=== PATIENT | male | born 1955 | race Caucasian/White ===

== ENCOUNTER 2021-11-21 16:03 | Inpatient (IN) | payer OTHER ==
[~2021-11-21] VITALS: Ht 190.5 cm; Wt 62.3 kg
[~2021-11-21 16:03] MED LIST: ALBU2.5V5 INH; ALBU90OI INH; AMIT25 PO; BACL20 PO; CYAN1000 PO; Cialis5 MG PO; DOCU100 PO; LEVO750 PO; MAGOX 400400 MG PO; METO50ER PO; OMEP20ER PO; OXYC5 PO; SPIRIVA RESPIMAT4 G3 INH; SYMBICORT 160-4.6 GM; Vitamin B-121000 MCG PO
[2021-11-21 16:29] LABS: BASOPHILS ABSOLUTE AUTO 0.06 K/mm3 (0.00-0.23); BASOPHILS PERCENT AUTO 0 % (0-2); EOSINOPHILS ABSOLUTE AUTO 0.01 K/mm3 (0.00-0.68); EOSINOPHILS PERCENT AUTO 0 % (0-6); Hematocrit 49.2 % (37.0-53.0); Hemoglobin 15.7 g/dL (13.5-17.5); IMMATURE GRAN ABSOLUTE AUTO 0.18 K/mm3 (0.00-0.10); IMMATURE GRAN PERCENT AUTO 1 % (0-1); LYMPHOCYTES ABSOLUTE AUTO 0.78 K/mm3 (0.84-5.20); LYMPHOCYTES PERCENT AUTO 3 % (21-46); MONOCYTES PERCENT AUTO 3 % (4-13); Mean Corpuscular HGB 30.2 pg (26.0-34.0); Mean Corpuscular HGB Conc 31.9 g/dL (31.5-36.5); Mean Corpuscular Volume 95 fL (80-100); Mean Platelet Volume 10.2 fL (9.1-12.4); NEUTROPHILS ABSOLUTE AUTO 28.61 K/mm3 (1.96-9.15); NEUTROPHILS PERCENT AUTO 93 % (41-73); Platelet Count 208 K/mm3 (150-400); RDW Coefficient Variation 15.4 % (11.7-14.2); RDW Standard Deviation 54.1 fL (35.1-46.3); White Blood Cell Count 30.64 K/mm3 (4.00-11.30)
[2021-11-21 16:48] LABS: Alanine Aminotransfer (ALT/SGP 21 U/L (12-78); Albumin, Blood 3.7 g/dL (3.4-5.0); Albumin/Globulin Ratio 1.1 (0.8-1.8); Alk Phos 62 U/L (50-136); Anion Gap 7 mmol/L (6-16); Aspartate Aminotrans (AST/SGOT 22 U/L (12-37); Blood Urea Nitrogen 40 mg/dL (8-24); Bun/Creatinine Ratio 40.1 (12.0-20.0); CO2, Blood 26 mmol/L (21-32); Calcium, Blood 8.8 mg/dL (8.5-10.1); Chloride, Blood 105 mmol/L (98-108); Globulin, Blood 3.3 g/dL (2.2-4.0); Glomerular Filtration Rate >60 (60-); Glucose, Blood 102 mg/dL (70-99); Magnesium, Blood 1.6 mg/dL (1.6-2.4); Potassium, Blood 3.7 mmol/L (3.5-5.5); Sodium, Blood 138 mmol/L (136-145)
[2021-11-21 17:32] LABS: Influenza A, PCR NEGATIVE (NEGATIVE); Influenza B, PCR NEGATIVE (NEGATIVE); Resp Syncytial Virus, PCR NEGATIVE (NEGATIVE); SARS-Cov-2 (COVID-19) PCR, MMC NEGATIVE (NEGATIVE)
[2021-11-21 17:44] LABS: Source, Urine Clean Catch
[2021-11-21 17:48] LABS: Bilirubin, Urine Neg (Neg); Blood, Urine Neg (Neg); Glucose Qualitative, Urine Neg (Neg); Ketones, Urine Neg (Neg); Leukocyte Esterase, Urine 3+ (Neg); Nitrite, Urine Pos (Neg); Protein, Urine 2+ (Neg); Specific Gravity, Urine 1.015 (1.003-1.022); Urobilinogen, Urine 1+ (Normal)
[2021-11-21 17:57] LABS: Appearance, Urine Clear (Clear); Color, Urine Pale Yellow (P-Yellow)
[2021-11-21 17:58] LABS: Red Blood Cells, Urine 0-2 /hpf (0-2)
[2021-11-21 17:59] LABS: Bacteria Many /hpf; Mucus Light (0-Heavy); Squamous Epithelial Cells Rare /hpf (Few)
[2021-11-21] MEDS ORDERED: ACET500 PO (19:37)
[2021-11-21] MEDS ORDERED: CAVERJECT20 MCG UD (19:45)
[2021-11-21] MEDS ORDERED: AMOX500 PO (19:45)
[2021-11-21] MEDS ORDERED: CELE200 PO (19:46)
[2021-11-21] MEDS ORDERED: CHLO25A PO (19:47)
[2021-11-21] MEDS ORDERED: WIXELA 250-501 EAC1 INH (19:48)
[2021-11-21] MEDS ORDERED: MELA3 PO (19:49)
--- NOTE | 2021-11-21 20:21 | NUR ---
ADMIT NOTE 65 YR OLD MALE ADMITTED TO FLOOR FROM THE ED WITH DX OF SEPSIC UTI WITH AMS. INTERMITTENT MOANS AND VERBAL RESPONSE APPROPRIATE AT TIMES. ORIENTED TO CALL LIGHT. CALL LIGHT IN REACH. ED RN REPORTED THAT PT WAS [facility] A [facility] AND WAS FEELING ILL, CAME TO THE ED, LACTIC ACID LEVEL ELEVATED. AWAITING URINE TOX SCREEN.
--- NOTE | 2021-11-21 21:29 | NUR ---
LAB REPORTED LACTIC ACID OF 2.1, MD WAS NOTIFIED. LAB VALUE DOWN FROM 3.3 EARLIER - TRENDING IN THE CORRECT DIRECTION. MD WAS NOTIFIED OF PT C/O CHEST PAIN, BUT APPARENTLY NOT ABLE TO GIVE DETAILS. MD ORDERED ONE TIME ORDER FOR FENTANYL 50 MGC IV. IVF OF NS INFUSING AT 100 ML/HR. CALL LIGHT IN REACH
--- NOTE | 2021-11-21 23:40 | NUR ---
EARLIER, VOICED NO PAIN - IN CHEST OR OTHERWISE. FENTANYL HELD. STATED HE WAS FEELING "BETTER" AND WAS SMILING. THEN A FEW MINUTES AGO, VOICED DIFFICULTY TO BREATHE, WANTING "INHALER". O2 2L/NC PLACED, RT NOTIFIED. INHALER TO BE ADMINISTERED PER RT. SEE MAR FOR DETAILS. CALL LIGHT IN REACH
--- NOTE | 2021-11-22 01:12 | NUR ---
ANOTHER RUN OF PVC'S REPORTED BY TELE MONITOR. NOTIFIED. ELECTROLYTES WNL, TO CONTINUE TO MONITOR. PT ASYMPTOMATIC. DENIED PAIN. SEE DOC FLOW SHEETS FOR VS. BP WAS 141/101 BUT LOWER THAN RECORDED EARLIER. CALL LIGHT IN REACH. WILL MONITOR
--- NOTE | 2021-11-22 03:16 | NUR ---
RECONCILIATION MANAGER SUMMARY WAS ADMITTED EARLIER IN THE SHIFT WITH SEPSIS DUE TO UTI. TELE REVEALED INTERMITTENT RUNS OF PVC'S AND PAC'S, ONE WITH ELEVATED T WAVES. DENIED PAIN, WAS ASYMPTOMATIC DURING SAID TELE EPISODES. MD'S WERE NOTIFIED AFTER EACH RUN. ELECTROLYTES WNL. MD ORDERED TO CONTINUE TO WATCH. REMIAINS ASYMPTOMATIC. IVF OF NS RUNNING AT 100 ML/HR. NPO, ORDERS FOR 2 D ECHO IN THE AM (ELEVATED BNP). HAD AN EPISODE OF SOB, PLACED ON O2 PER NC 2-3L/MIN. RT PROVIDED A TREATMENT (SEE MAR FOR DETAILS). CURRENTLY RESTING QUIELTY WITH AN OCCASONAL MOAN (HAS BEEN DOING THIS SINCE ADMISSION, DENIED DISTRESS WHEN ASKED). WAS UP TO THE BATHROOM FOR BM X 1 EARLIER WITH WALKER. CALL LIGHT IN REACH.
[2021-11-22 05:47] LABS: BASOPHILS ABSOLUTE AUTO 0.03 K/mm3 (0.00-0.23); BASOPHILS PERCENT AUTO 0 % (0-2); EOSINOPHILS ABSOLUTE AUTO 0.04 K/mm3 (0.00-0.68); EOSINOPHILS PERCENT AUTO 0 % (0-6); Hematocrit 43.2 % (37.0-53.0); Hemoglobin 13.7 g/dL (13.5-17.5); IMMATURE GRAN PERCENT AUTO 1 % (0-1); LYMPHOCYTES ABSOLUTE AUTO 0.91 K/mm3 (0.84-5.20); LYMPHOCYTES PERCENT AUTO 4 % (21-46); MONOCYTES ABSOLUTE AUTO 0.83 K/mm3 (0.16-1.47); MONOCYTES PERCENT AUTO 4 % (4-13); Mean Corpuscular HGB Conc 31.7 g/dL (31.5-36.5); Mean Corpuscular Volume 95 fL (80-100); Mean Platelet Volume 10.4 fL (9.1-12.4); NEUTROPHILS ABSOLUTE AUTO 19.55 K/mm3 (1.96-9.15); NEUTROPHILS PERCENT AUTO 91 % (41-73); Platelet Count 179 K/mm3 (150-400); RDW Coefficient Variation 15.6 % (11.7-14.2); RDW Standard Deviation 53.9 fL (35.1-46.3); Red Blood Cell Count 4.57 M/mm3 (4.30-5.90); White Blood Cell Count 21.46 K/mm3 (4.00-11.30)
[2021-11-22 06:13] LABS: Alanine Aminotransfer (ALT/SGP 20 U/L (12-78); Albumin, Blood 2.8 g/dL (3.4-5.0); Alk Phos 52 U/L (50-136); Anion Gap 4 mmol/L (6-16); Aspartate Aminotrans (AST/SGOT 17 U/L (12-37); Bilirubin, Total 0.6 mg/dL (0.1-1.0); Blood Urea Nitrogen 29 mg/dL (8-24); Bun/Creatinine Ratio 35.9 (12.0-20.0); CO2, Blood 27 mmol/L (21-32); Calcium, Blood 8.1 mg/dL (8.5-10.1); Chloride, Blood 113 mmol/L (98-108); Creatinine, Blood 0.81 mg/dL (0.60-1.20); Globulin, Blood 2.8 g/dL (2.2-4.0); Glomerular Filtration Rate >60 (60-); Glucose, Blood 92 mg/dL (70-99); Sodium, Blood 144 mmol/L (136-145); Total Protein, Blood 5.6 g/dL (6.4-8.2)
--- NOTE | 2021-11-22 18:54 | NUR ---
PATIENT BECAME TACHCARDIC ALONG WITH ARRHYTHMIA, PATIENT STARTED SHOWING BI AND TRIGEMINY PVC, WHILE RN WAS WITH PT. WHEN RN WAS AWAY FROM PT TO CALL MD, ANOTHER RN AT NURSING STATION INFORMED RN THAT HIS RATE WAS 160. RN WENT INTO PT ROOM TO CHECK HIS STATUS, FOUND HIM BREATHING FAST AROUND 24-26. HE WAS ASKED IF CAN HE FEEL HIS HEART RACING HE SAID NO. AFTER A PAUSE HE SAID, "I CAN'T LIE TO YOU, I FOUND ONE OF MY INHALERS IN MY PANTS AND USED IT." HE ALSO TOLD RN THAT HE HAD THREE OF THEM IN HIS PANTS. RN REMOVED FROM THE ROOM 4 PERSONAL INHALERS. DMITRY NATHAN REQUESTED A ONE TIME DOSE OF TOPROL XL AT 1600 FOR A HIGH BP, HIS A.M. SCHEDULED DOSE WAS HELD PER MD D/T PT BEING NPO, THE REQUEST WAS DENIED. RN DID STAT EKG D/T THE RATE AND RHYTHM AND INFORMED MD AROUND 1814. PUT IN NEW ORDER OF TOPROL XL 50MG ONE TIME, WHICH WAS GIVEN AROUND 1849. NOC RN WILL MONITOR.
--- NOTE | 2021-11-23 04:50 | NUR ---
SHIFT SUMMARY: NO SIGNIFCANT EVENTS OVER NIGHT. A FEW RUNS 5 BEATS PVCS, PATIENT ASYMTPOMATIC. PRN BREATHING TREATMENT PROVIDED BY RT AT PATIENTS REQUEST. COMPLAINTS SOB, SAT > 92%. WCTM.
[2021-11-23 05:35] LABS: BASOPHILS ABSOLUTE AUTO 0.02 K/mm3 (0.00-0.23); BASOPHILS PERCENT AUTO 0 % (0-2); EOSINOPHILS ABSOLUTE AUTO 0.15 K/mm3 (0.00-0.68); EOSINOPHILS PERCENT AUTO 1 % (0-6); Hematocrit 40.9 % (37.0-53.0); Hemoglobin 13.1 g/dL (13.5-17.5); IMMATURE GRAN ABSOLUTE AUTO 0.06 K/mm3 (0.00-0.10); IMMATURE GRAN PERCENT AUTO 0 % (0-1); LYMPHOCYTES ABSOLUTE AUTO 0.94 K/mm3 (0.84-5.20); LYMPHOCYTES PERCENT AUTO 7 % (21-46); MONOCYTES ABSOLUTE AUTO 0.88 K/mm3 (0.16-1.47); MONOCYTES PERCENT AUTO 6 % (4-13); Mean Corpuscular HGB 30.4 pg (26.0-34.0); Mean Corpuscular Volume 95 fL (80-100); Mean Platelet Volume 10.2 fL (9.1-12.4); NEUTROPHILS ABSOLUTE AUTO 11.96 K/mm3 (1.96-9.15); NEUTROPHILS PERCENT AUTO 85 % (41-73); Platelet Count 192 K/mm3 (150-400); RDW Coefficient Variation 15.8 % (11.7-14.2); RDW Standard Deviation 55.8 fL (35.1-46.3); Red Blood Cell Count 4.31 M/mm3 (4.30-5.90); White Blood Cell Count 14.01 K/mm3 (4.00-11.30)
[2021-11-23 05:55] LABS: Alanine Aminotransfer (ALT/SGP 15 U/L (12-78); Albumin, Blood 2.6 g/dL (3.4-5.0); Albumin/Globulin Ratio 0.9 (0.8-1.8); Alk Phos 55 U/L (50-136); Anion Gap 5 mmol/L (6-16); Aspartate Aminotrans (AST/SGOT 12 U/L (12-37); Bilirubin, Total 0.2 mg/dL (0.1-1.0); Blood Urea Nitrogen 24 mg/dL (8-24); Bun/Creatinine Ratio 21.2 (12.0-20.0); CO2, Blood 30 mmol/L (21-32); Chloride, Blood 105 mmol/L (98-108); Creatinine, Blood 1.13 mg/dL (0.60-1.20); Globulin, Blood 2.8 g/dL (2.2-4.0); Glomerular Filtration Rate >60 (60-); Glucose, Blood 103 mg/dL (70-99); Potassium, Blood 3.5 mmol/L (3.5-5.5); Sodium, Blood 140 mmol/L (136-145); Total Protein, Blood 5.4 g/dL (6.4-8.2)
[2021-11-23 06:12] LABS: U Amphetamine Screen Not Detected; U Barbituate Screen Not Detected; U Benzodiazapine Screen Not Detected; U Cocaine Screen Not Detected; U Methadone Screen Not Detected; U Methamphetamine Screen Not Detected
[2021-11-23 06:13] LABS: U Buprenorphine Screen Not Detected; U Cannabinoids Screen Not Detected; U Opiates Screen Not Detected; U Oxycodone Screen Not Detected; U Phencyclidine Screen Not Detected; U Propoxyphene Screen Not Detected
--- NOTE | 2021-11-23 16:35 | NUR ---
SHIFT SUMMARY PATIENT MEDICATED FOR MUSCLE SPASMS X1. PATIENT DENIES NAUSEA. PATIENT REPORTS SOB AND USED INHALER X1. PATIENT IS A SBA FOR TRANSFERS. PER DR, PATIENT COULD POSSIBLY DISCHARGE TODAY. TRANSPORTATION SET UP FOR 0845 ON 11/24. PATIENT IS EATING AND DRINKING WELL. PATIENT IS PLEASANT AND COOPERATIVE WITH CARE.
--- NOTE | 2021-11-24 04:38 | NUR ---
SHIFT SUMMARY: NO SIGNIFICANT EVENTS ON NOC. REMAINS WITH COUGH. RUNS OF PVCS CONTINUE. PATIENT SLEPT WELL THROUGH THE NIGHT. WCTM.
[2021-11-24 04:56] LABS: BASOPHILS ABSOLUTE AUTO 0.01 K/mm3 (0.00-0.23); BASOPHILS PERCENT AUTO 0 % (0-2); EOSINOPHILS ABSOLUTE AUTO 0.11 K/mm3 (0.00-0.68); EOSINOPHILS PERCENT AUTO 1 % (0-6); Hematocrit 43.3 % (37.0-53.0); Hemoglobin 14.1 g/dL (13.5-17.5); IMMATURE GRAN ABSOLUTE AUTO 0.06 K/mm3 (0.00-0.10); IMMATURE GRAN PERCENT AUTO 1 % (0-1); LYMPHOCYTES ABSOLUTE AUTO 0.82 K/mm3 (0.84-5.20); LYMPHOCYTES PERCENT AUTO 8 % (21-46); MONOCYTES ABSOLUTE AUTO 0.98 K/mm3 (0.16-1.47); MONOCYTES PERCENT AUTO 10 % (4-13); Mean Corpuscular HGB Conc 32.6 g/dL (31.5-36.5); Mean Corpuscular Volume 92 fL (80-100); Mean Platelet Volume 9.5 fL (9.1-12.4); NEUTROPHILS ABSOLUTE AUTO 7.83 K/mm3 (1.96-9.15); NEUTROPHILS PERCENT AUTO 80 % (41-73); Platelet Count 224 K/mm3 (150-400); RDW Coefficient Variation 15.4 % (11.7-14.2); White Blood Cell Count 9.81 K/mm3 (4.00-11.30)
[2021-11-24] MEDS ORDERED: FURO20 PO (07:23)
[2021-11-24] MEDS ORDERED: PRED20 PO (07:23)
--- NOTE | 2021-11-24 09:42 | NUR ---
PATIENT DISCHARGED, TO BE PICKED [facility] BY [facility]. MISSED HIS TARGET TIME OF 0845. POWERGLIDE IV REMOVED WITHOUT INCIDENT. DRESSED HIMSELF. CHANELL FROM [facility] CALLED AT 0925 TO [employer] LINE WINDING MACHINE OPERATOR PATIENT, TOLD HIM PT WOULD BE WAITING AT PT ENTRANCE NEAR THE ER. OFF UNIT VIA W/C AT 0925.
== END 2021-11-24 09:24 | disposition home or self-care (01) | DRG 871 ==
LOC: ER 16:03 → MEDS 16:04 → ENPENDDIS 11-24 06:28 → MEDS 11-24 09:24
PROVIDERS: Family Medicine; Physician Assistant; ADMIT Internal Medicine
DX: A41.51 Sepsis due to Escherichia coli [E. coli] (principal); G92.8 Other toxic encephalopathy; I26.99 Other pulmonary embolism without acute cor pulmonale; J96.01 Acute respiratory failure with hypoxia; N39.0 Urinary tract infection, site not specified; E87.2 Acidosis; Z20.822 Contact with and (suspected) exposure to COVID-19; R65.20 Severe sepsis without septic shock; I27.20 Pulmonary hypertension, unspecified; R19.7 Diarrhea, unspecified; J43.9 Emphysema, unspecified; I50.811 Acute right heart failure; G89.29 Other chronic pain; F32.A Depression, unspecified; M54.9 Dorsalgia, unspecified; K21.9 Gastro-esophageal reflux disease without esophagitis; M19.90 Unspecified osteoarthritis, unspecified site; F17.210 Nicotine dependence, cigarettes, uncomplicated; Z79.899 Other long term (current) drug therapy; Z59.00 Homelessness unspecified; Z85.72 Personal history of non-Hodgkin lymphomas; Z98.890 Other specified postprocedural states
CPT/HCPCS: 0241U; 36415; 70450; 71045; 71260; 80053; 81001; 82947; 83605; 83735; 83880; 84484; 85025; 87040; 87077; 87086; 87186; 93005; 93010; 93306; 94640; 94664; 94760; 94762; 96374; 99285-25; A9270; J0696; J1650; J1940; J3475; J7030; J7512; Q0177; Q9967

== ENCOUNTER 2021-11-25 11:27 | Inpatient (IN) | payer OTHER ==
[~2021-11-25] VITALS: Ht 190.5 cm; Wt 64.3 kg
[~2021-11-25 11:27] MED LIST changes: +ACET500 PO; +AMOX500 PO; +CAVERJECT20 MCG UD; +CELE200 PO; +CHLO25A PO; +FURO20 PO; +MELA3 PO; +PRED20 PO; +WIXELA 250-501 EAC1 INH
[2021-11-25 12:28] LABS: Base Excess Venous 6.6 mmol/L; Bicarbonate Venous 28.7 mmol/L (24.0-30.0); PCO2 Venous 53 mmHg (38-42); PO2 Venous 85 mmHg (38-42); pH Blood Venous 7.38 (7.34-7.37)
[2021-11-25 12:32] LABS: BASOPHILS ABSOLUTE AUTO 0.05 K/mm3 (0.00-0.23); BASOPHILS PERCENT AUTO 0 % (0-2); EOSINOPHILS ABSOLUTE AUTO 0.06 K/mm3 (0.00-0.68); EOSINOPHILS PERCENT AUTO 0 % (0-6); Hematocrit 53.4 % (37.0-53.0); IMMATURE GRAN ABSOLUTE AUTO 0.08 K/mm3 (0.00-0.10); IMMATURE GRAN PERCENT AUTO 1 % (0-1); LYMPHOCYTES ABSOLUTE AUTO 0.71 K/mm3 (0.84-5.20); LYMPHOCYTES PERCENT AUTO 5 % (21-46); MONOCYTES ABSOLUTE AUTO 1.87 K/mm3 (0.16-1.47); MONOCYTES PERCENT AUTO 13 % (4-13); Mean Corpuscular HGB 30.5 pg (26.0-34.0); Mean Corpuscular HGB Conc 31.8 g/dL (31.5-36.5); Mean Corpuscular Volume 96 fL (80-100); NEUTROPHILS ABSOLUTE AUTO 12.25 K/mm3 (1.96-9.15); NEUTROPHILS PERCENT AUTO 82 % (41-73); Platelet Count 276 K/mm3 (150-400); RDW Coefficient Variation 15.9 % (11.7-14.2); RDW Standard Deviation 56.1 fL (35.1-46.3); Red Blood Cell Count 5.58 M/mm3 (4.30-5.90); White Blood Cell Count 15.02 K/mm3 (4.00-11.30)
[2021-11-25 12:35] LABS: Albumin, Blood 3.3 g/dL (3.4-5.0); Albumin/Globulin Ratio 0.8 (0.8-1.8); Bilirubin, Total 0.2 mg/dL (0.1-1.0); Bun/Creatinine Ratio 28.6 (12.0-20.0); Calcium, Blood 8.8 mg/dL (8.5-10.1); Creatinine, Blood 1.26 mg/dL (0.60-1.20); Globulin, Blood 4.2 g/dL (2.2-4.0); Potassium, Blood 3.8 mmol/L (3.5-5.5); Total Protein, Blood 7.5 g/dL (6.4-8.2)
[2021-11-25 16:46] LABS: Source, Urine Clean Catch
[2021-11-25 16:51] LABS: Bilirubin, Urine Neg (Neg); Blood, Urine Neg (Neg); Color, Urine Yellow (P-Yellow); Glucose Qualitative, Urine Neg (Neg); Ketones, Urine Neg (Neg); Leukocyte Esterase, Urine 2+ (Neg); Nitrite, Urine Neg (Neg); Protein, Urine 2+ (Neg); Urobilinogen, Urine NORM (Normal)
[2021-11-25 17:00] LABS: Appearance, Urine Hazy (Clear)
[2021-11-25 17:02] LABS: Bacteria Many /hpf; Red Blood Cells, Urine Not Seen /hpf (0-2); Squamous Epithelial Cells Rare /hpf (Few)
[2021-11-25 18:47] LABS: U Amphetamine Screen Not Detected; U Barbituate Screen Not Detected; U Benzodiazapine Screen Not Detected; U Buprenorphine Screen Not Detected; U Cannabinoids Screen Not Detected; U Cocaine Screen Not Detected; U Methadone Screen Not Detected; U Methamphetamine Screen Not Detected; U Opiates Screen Not Detected; U Oxycodone Screen Not Detected; U Phencyclidine Screen Not Detected; U Propoxyphene Screen Not Detected
--- NOTE | 2021-11-25 19:23 | NUR ---
PT ARRIVED IN THE ROOM FROM [facility] RECEIVED REPORT FROM ALEIDA NATHAN. PT WAS ABLE TO SAFELY TRANSFER SBA TO PCU BED. PT ABLE TO STATE NAME , KNOWS WHERE HE'S AT, FALLS BACK TO SLEEP EASILY, GARBLED SPEECH. VITALS HRR SR 70'S, BP SYSTOLIC 140'S, SATS ABOVE 95% ON RA, AFEBRILE. PT GOT SETTLED IN BED REPORT GIVEN TO YOSHI NATHAN
[2021-11-26 04:03] LABS: BASOPHILS ABSOLUTE AUTO 0.01 K/mm3 (0.00-0.23); BASOPHILS PERCENT AUTO 0 % (0-2); EOSINOPHILS PERCENT AUTO 0 % (0-6); Hematocrit 49.5 % (37.0-53.0); Hemoglobin 15.5 g/dL (13.5-17.5); IMMATURE GRAN ABSOLUTE AUTO 0.03 K/mm3 (0.00-0.10); IMMATURE GRAN PERCENT AUTO 0 % (0-1); LYMPHOCYTES ABSOLUTE AUTO 0.33 K/mm3 (0.84-5.20); LYMPHOCYTES PERCENT AUTO 4 % (21-46); MONOCYTES ABSOLUTE AUTO 0.17 K/mm3 (0.16-1.47); MONOCYTES PERCENT AUTO 2 % (4-13); Mean Corpuscular HGB 29.9 pg (26.0-34.0); Mean Corpuscular HGB Conc 31.3 g/dL (31.5-36.5); Mean Corpuscular Volume 96 fL (80-100); Mean Platelet Volume 9.8 fL (9.1-12.4); NEUTROPHILS ABSOLUTE AUTO 8.24 K/mm3 (1.96-9.15); NEUTROPHILS PERCENT AUTO 94 % (41-73); Platelet Count 274 K/mm3 (150-400); RDW Coefficient Variation 15.9 % (11.7-14.2); RDW Standard Deviation 56.5 fL (35.1-46.3); Red Blood Cell Count 5.18 M/mm3 (4.30-5.90); White Blood Cell Count 8.78 K/mm3 (4.00-11.30)
[2021-11-26 04:24] LABS: Alanine Aminotransfer (ALT/SGP 13 U/L (12-78); Albumin, Blood 2.9 g/dL (3.4-5.0); Albumin/Globulin Ratio 0.7 (0.8-1.8); Alk Phos 77 U/L (50-136); Anion Gap 8 mmol/L (6-16); Aspartate Aminotrans (AST/SGOT 10 U/L (12-37); Bilirubin, Total 0.3 mg/dL (0.1-1.0); Blood Urea Nitrogen 28 mg/dL (8-24); Bun/Creatinine Ratio 34.2 (12.0-20.0); CO2, Blood 25 mmol/L (21-32); Calcium, Blood 8.4 mg/dL (8.5-10.1); Chloride, Blood 110 mmol/L (98-108); Creatinine, Blood 0.82 mg/dL (0.60-1.20); Globulin, Blood 3.9 g/dL (2.2-4.0); Glomerular Filtration Rate >60 (60-); Glucose, Blood 141 mg/dL (70-99); Potassium, Blood 4.3 mmol/L (3.5-5.5); Sodium, Blood 143 mmol/L (136-145); Total Protein, Blood 6.8 g/dL (6.4-8.2)
--- NOTE | 2021-11-26 05:35 | NUR ---
SHIFT SUMMARY PT ARRIVED ON PCU AT 1840, RIGHT BEFORE SHIFT CHANGE. ALERT AND ORIENTED X2. GARBLED SPEECH. DOES NOT FOLLOW COMMANDS OR RESPOND TO ALL QUESTIONS. FREQUENT EPISODES OF CONFUSION. ATTEMPTED TO DRINK OUT OF CUP WITH LID ON AND USE INHALER WITH CAP ON. ON RA SATS OVER 93%. AFEBRILE. X3 EPISODES OF SUDDEN SHORTNESS OF BREATH. RELIEVED ON OWN WITH HOB ELEVATED AND RN IN ROOM. 1-2L NC PRN FOR COMFORT. PT INCONTINENT X1. HR SR 70'S-90'S W/ PVCS. FREQUENTS RUNS OF PVC'S. TACHY WITH MOVEMENT. PT TOLERATED TAKING MEDS WITH WATER. PT IN BED SLEEPING WITH CALL ALARM AT SIDE. WILL CONTINUE TO MONITOR UNTIL REPORT GIVEN TO DAYSHIFT RN
--- NOTE | 2021-11-26 18:09 | NUR ---
SHIFT SUMMARY PT HAS BEEN RESTING IN BED, REFUSED TO GET UP TO CHAIR. PT HAS SLEPT OFF AND ON THROUGHOUT THE DAY. PT DENIES C/O PAIN OR DISCOMFORT AND FREQUENTLY REPOSITIONS SELF FOR COMFORT AND PRSSURE. PT HAS HAD SOME DIFFICULTIES MANIPULATING THE URINAL TO VOID WITHOUT SPILLING AND REFUSES ASSISTANCE. ALL VITAL SIGNS HAVE REMAINED STABLE, THERE HAVE BEEN NO ACUTE CHANGES TO PT CONDITION.
[2021-11-27 04:20] LABS: Anion Gap 6 mmol/L (6-16); Blood Urea Nitrogen 35 mg/dL (8-24); CO2, Blood 31 mmol/L (21-32); Calcium, Blood 8.8 mg/dL (8.5-10.1); Chloride, Blood 104 mmol/L (98-108); Creatinine, Blood 1.03 mg/dL (0.60-1.20); Glomerular Filtration Rate >60 (60-); Glucose, Blood 150 mg/dL (70-99); Potassium, Blood 4.4 mmol/L (3.5-5.5); Sodium, Blood 141 mmol/L (136-145)
--- NOTE | 2021-11-27 06:17 | NUR ---
SHIFT SUMMARY PT ALERT AND ORIENTED X4. MENTATION IMPROVED SIGNIFICANTLY SINCE PREVIOUS EVENING. CALLS APPROPRIATELY, ABLE TO HAVE CONVERSATIONS, NOT REPEATING WORDS ANYMORE. BP STABLE. ON RA SATS OVER 90%. AFEBRILE. C/O INSOMNIA, MEDICATED PER EMAR. SOB X2, RELIEVED WITH BREATHING TREATMENT. ABLE TO AMBULATE TO BATHROOM. IN BED RESTING WITH CALL ALARM AT SIDE. WILL CONTINUE TO MONITOR UNTIL REPORT GIVEN TO DAYSHIFT JAC
--- NOTE | 2021-11-27 17:54 | NUR ---
SHIFT SUMMARY PT HAS BEEN RESTING IN BED, THEY NAPPED ON MULTIPLE OCCASIONS THROUGHOUT THE DAY. PT HAS REFUSED TO GET UP TO THE CHAIR TODAY. PT HAS HAD NO C/O PAIN OR DISCOMFORT AND IS CAPABLE OF REPOSITIONING SELF FOR PRESSURE AND COMFORT. PT HAS USED CALL LIGHT EXCESSIVELY THROUGHOUT THE DAY. PT WAS ABLE TO USE THE URINAL WITHOUT ASSISTANCE AND DENIED ANY DYSURIA. URINE HAS BEEN CLEAR AND STRAW YELLOW. BLOOD PRESSURE HAS BEEN CONSISTENTLY HIGH, SBP 152-165. PT HAS MAINTAINED SPO2 >90% ON ROOM AIR.
--- NOTE | 2021-11-28 04:44 | NUR ---
SHIFT SUMMARY PT ALERT AND ORIENTED X4. BP STABLE. HR 60-80'S. AFEBRILE. PT FIXATED ON NEEDING NASAL CANNULA. ON RA SATS 88-92%. ON 2L SATS OVER 95%. CALLS APPROPRIATELY. HUNGRY OR SLEEPING THROUGHOUT THE NIGHT. IN BED RESTING WITH CALL ALARM AT SIDE. WILL CONTINUE TO MONITOR UNTIL REPORT GIVEN TO DAYSHIFT RN
--- NOTE | 2021-11-28 17:50 | NUR ---
SHIFT SUMMARY PT HAS BEEN RESTING IN BED. PT AGAIN REFUSED TO GET UP TO CHAIR TODAY, THEY STATED "I CAN'T TAKE A NAP IN THE CHAIR." PT WAS EDUCATED ON THE BENEFITS OF GETTING UP AND MOVING AROUND. PT HAS HAD NO COMPLAINTS OF PAIN OR DISCOMFORT AND HAS HAD NO ISSUES REPOSITIONING SELF IN BED. VSS, NO ACUTE CHANGES IN PT CONDITION.
--- NOTE | 2021-11-29 05:25 | NUR ---
SHIFT SUMMARY PT ALERT AND ORIENTED X4. COOPERATIVE TO CARE. AFEBRILE. BP STABLE. ON RA SATS OVER 89%. FIXATED ON OXYGEN, REQUESTS ON HAVING CANNULA IN REGARDLESS OF O2 SATS. WILL ALSO INSIST ON HAVING BREATHING TREATMENT Q4 DESPITE NOT FEELING SOB. VOIDS INDEPENDENTLY TO BATHROOM OR W/ BEDSIDE URINAL. IN BED SLEEPING WITH CALL ALARM AT SIDE. WILL CONTINUE TO MONITOR UNTIL REPORT [facility]
--- NOTE | 2021-11-29 09:16 | NUR ---
AM NOTE: ALERT AND ORIENTED. AT TIMES MAKING STRANGE COMMENTS. ANXIOUS ABOUT OXYGEN NEEDS. DENIES NUMBNESS/TINGLING. SBA WHEN UP. OVERALL SLIGHTLY WEAK. ON ROOM AIR SATING 88-92% WHEN IN BED. CONTINUOUS BIOX TURNED OFF THIS AM DUE TO IT CAUSING PATIENT ANXIETY AND STRESS. SPOKE WITH DR. BARRETT THIS AM WITH O2 SAT GOAL 88-92%. EXPIRATORY WHEEZE HEARD THROUGHOUT. PRN BREATHING TREATMENTS NEEDED. NO TELE. BP AND HR STABLE. DENIES CHEST PAIN/PRESSURE. DENIES ABDOMINAL PAIN/NAUSEA. COMPLAINS OF GERD LIKE SYMPTOMS THIS AM, GI COCKTAIL ORDERED. TOLERATING PO DIET. TALKINGG WITH FAMILY AND FRIENDS ON PERSONAL PHONE THIS AM. CALL LIGHT IN REACH. WILL CONTINUE TO MONITOR.
[2021-11-29] MEDS ORDERED: DOXY100 PO (11:38)
[2021-11-29] MEDS ORDERED: LACT PO (11:39)
[2021-11-29] MEDS ORDERED: Prednisone10 MG PO (11:51)
[2021-11-29] MEDS ORDERED: PRED1 PO (11:55)
--- NOTE | 2021-11-29 13:26 | NUR ---
DISCHARGE: NO ACUTE CHANGES. VITAL SIGNS REMAINS STABLE. O2 REMAINS 88-92% ON ROOM AIR. SOB WITH MOVEMENT. PATIENT EDUCATED ON WAYS TO DEEP BREATH AND CATCH BREATH WHEN FEELING SOB. DISCHARGE INSTRUCTIONS REVIEWED AND PATIENT ABLE TO TEACH BACK EDUCATION. SPECIFIC EDUCATION ON IMPORTANCE OF FOLLOW UP WITH PCP, PATIENT AGREEABLE TO MAKE APPOINTMENT TODAY. ALL MEDICATIONS AND NEW MEDICTIONS REVIEWED. PATIENT ABLE TO TEACH BACK ON NEW MEDICATION ADMINISTRATION. [facility], [facility] AND [facility]. PATIENT AGREEABLE. LEFT UNIT VIA WHEELCHAIR WITH ALL PERSONAL BELONGINGS.
== END 2021-11-29 13:18 | disposition home or self-care (01) | DRG 871 ==
LOC: ER 11:27 → PCU 18:12
PROVIDERS: Family Medicine; Physician Assistant; Student in an Organized Health Care Education/Training Program; ADMIT Internal Medicine
DX: A41.51 Sepsis due to Escherichia coli [E. coli] (principal); J96.21 Acute and chronic respiratory failure with hypoxia; G92.8 Other toxic encephalopathy; J96.22 Acute and chronic respiratory failure with hypercapnia; R65.21 Severe sepsis with septic shock; N39.0 Urinary tract infection, site not specified; J44.1 Chronic obstructive pulmonary disease with (acute) exacerbation; N17.9 Acute kidney failure, unspecified; Z28.21 Immunization not carried out because of patient refusal; F10.10 Alcohol abuse, uncomplicated; M19.90 Unspecified osteoarthritis, unspecified site; G89.29 Other chronic pain; M54.9 Dorsalgia, unspecified; F32.A Depression, unspecified; I10 Essential (primary) hypertension; F17.200 Nicotine dependence, unspecified, uncomplicated; K21.9 Gastro-esophageal reflux disease without esophagitis; Z86.718 Personal history of other venous thrombosis and embolism; Z98.890 Other specified postprocedural states; Z79.899 Other long term (current) drug therapy
CPT/HCPCS: 36415; 70450; 71046; 80048; 80053; 81001; 82803; 83605; 83735; 83880; 84484; 85025; 87040; 87086; 93005; 93010; 94640; 94645; 94664; 94760; 94762; 96365; 96375; 99285-25; A9270; J0696; J1644; J2930; J7030; J7512

== ENCOUNTER 2021-11-30 11:08 | Inpatient (IN) | payer OTHER ==
[~2021-11-30] VITALS: Ht 180.3 cm; Wt 63.9 kg
[~2021-11-30 11:08] MED LIST changes: +DOXY100 PO; +LACT PO; +PRED1 PO; +Prednisone10 MG PO
[2021-11-30 11:31] LABS: BASOPHILS ABSOLUTE AUTO 0.07 K/mm3 (0.00-0.23); BASOPHILS PERCENT AUTO 0 % (0-2); EOSINOPHILS PERCENT AUTO 0 % (0-6); Hematocrit 50.7 % (37.0-53.0); Hemoglobin 15.4 g/dL (13.5-17.5); IMMATURE GRAN ABSOLUTE AUTO 0.82 K/mm3 (0.00-0.10); IMMATURE GRAN PERCENT AUTO 4 % (0-1); LYMPHOCYTES ABSOLUTE AUTO 2.68 K/mm3 (0.84-5.20); LYMPHOCYTES PERCENT AUTO 14 % (21-46); MONOCYTES PERCENT AUTO 6 % (4-13); Mean Corpuscular HGB 30.1 pg (26.0-34.0); Mean Corpuscular HGB Conc 30.4 g/dL (31.5-36.5); Mean Corpuscular Volume 99 fL (80-100); Mean Platelet Volume 9.9 fL (9.1-12.4); NEUTROPHILS ABSOLUTE AUTO 14.31 K/mm3 (1.96-9.15); NEUTROPHILS PERCENT AUTO 75 % (41-73); Platelet Count 191 K/mm3 (150-400); RDW Coefficient Variation 15.5 % (11.7-14.2); RDW Standard Deviation 57.1 fL (35.1-46.3); Red Blood Cell Count 5.11 M/mm3 (4.30-5.90); White Blood Cell Count 18.98 K/mm3 (4.00-11.30)
[2021-11-30 11:50] LABS: PCO2 Arterial 64.2 mmHg (35-45); PO2 Arterial 371 mmHg (80-100)
[2021-11-30 11:52] LABS: Alanine Aminotransfer (ALT/SGP 41 U/L (12-78); Albumin, Blood 2.5 g/dL (3.4-5.0); Albumin/Globulin Ratio 0.7 (0.8-1.8); Alk Phos 88 U/L (50-136); Anion Gap 15 mmol/L (6-16); Aspartate Aminotrans (AST/SGOT 46 U/L (12-37); Bilirubin, Total 0.2 mg/dL (0.1-1.0); Blood Urea Nitrogen 56 mg/dL (8-24); Bun/Creatinine Ratio 47.5 (12.0-20.0); CO2, Blood 27 mmol/L (21-32); Calcium, Blood 8.9 mg/dL (8.5-10.1); Chloride, Blood 97 mmol/L (98-108); Creatinine, Blood 1.18 mg/dL (0.60-1.20); Globulin, Blood 3.4 g/dL (2.2-4.0); Glomerular Filtration Rate >60 (60-); Glucose, Blood 257 mg/dL (70-99); Potassium, Blood 5.5 mmol/L (3.5-5.5); Sodium, Blood 139 mmol/L (136-145); Total Protein, Blood 5.9 g/dL (6.4-8.2)
[2021-11-30 12:24] LABS: U Amphetamine Screen Not Detected; U Barbituate Screen Not Detected; U Benzodiazapine Screen Not Detected; U Buprenorphine Screen Not Detected; U Cannabinoids Screen Not Detected; U Cocaine Screen Not Detected; U Methadone Screen Not Detected; U Methamphetamine Screen Not Detected; U Opiates Screen Not Detected; U Oxycodone Screen Not Detected; U Phencyclidine Screen Not Detected; U Propoxyphene Screen Not Detected
--- NOTE | 2021-11-30 16:29 | NUR ---
PT ARRIVED TO ICU 3 AT 1440. INTUBATED WITH NO SEDATION. PT SLIGHTLY WITHDRAWS FROM PAINFUL STIMULUS. PT IS COLD T/O WITH PURPLE HANDS AND FEET. HYPOTHERMIC WITH FERRIS TEMP PROBE. NOSE IS DUSKY. SPO2 100%. PT ON LEVOPHED GTT, SEE TITRATION FLOWSHEET. FINISHING NS BOLUS ON ARRIVAL. OG TUBE WAS NOT ASPIRATING FLUID BUT COULD AUSCULATE AIR BEING PUT THROUGH TUBE IN THE STOMACH. ADVANCED OG AND WAS ABLE TO ASPIRATE FLUID. DR. REZA CONSULTED AND SAW PT. RECTAL TUBE IN PLACE.
--- NOTE | 2021-11-30 18:43 | NUR ---
PT WAS ASYNCHRONOUS WITH VENT, PROPOFOL STARTED AND NOW TOLERATING VENT WELL.
--- NOTE | 2021-11-30 19:15 | NUR ---
ASSUMPTION OF CARE PT REMAINS INTUBATED WITH VENT SETTINGS AC/VC 18/450/5/40%. HE IS RECEIVING PROPOFOL 30MCG/KG/MIN, LEVOPHED 6MCG/MIN, AND LR 100ML/HR. CENTRAL LINE TO RIJ. FERRIS PATENT AND DRAINING TO GRAVITY. RECTAL TUBE IN PLACE. SEE SHIFT ASSESSMENT.
[2021-12-01 00:42] LABS: Adenovirus F 40/41 Not Detected (NOT DETECT); Astrovirus Not Detected (NOT DETECT); Campylobacter Sp Not Detected (NOT DETECT); Cryptosporidium Not Detected (NOT DETECT); Cyclospora Cayetanensis Not Detected (NOT DETECT); E. Coli O157 Not Detected (NOT DETECT); Entamoeba Histolytica Not Detected (NOT DETECT); Enteroaggregative E. coli-EAEC Not Detected (NOT DETECT); Enteropathogenic E. coli-EPEC Not Detected (NOT DETECT); Enterotoxigenic E. coli-ETEC Not Detected (NOT DETECT); Giardia Lamblia Not Detected (NOT DETECT); Norovirus GI/GII Not Detected (NOT DETECT); Plesiomonas Shigelloides Not Detected (NOT DETECT); Rotavirus A Not Detected (NOT DETECT); Salmonella Sp Not Detected (NOT DETECT); Sapovirus Not Detected (NOT DETECT); Shiga Toxin-prod E. coli-STEC Not Detected (NOT DETECT); Shigella/Enteroin E. coli-EIEC Not Detected (NOT DETECT); Vibrio Cholerae Not Detected (NOT DETECT); Vibrio Sp Not Detected (NOT DETECT); Yersinia Enterocolitica Not Detected (NOT DETECT)
[2021-12-01 04:00] LABS: BASOPHILS ABSOLUTE AUTO 0.04 K/mm3 (0.00-0.23); BASOPHILS PERCENT AUTO 0 % (0-2); EOSINOPHILS PERCENT AUTO 0 % (0-6); Hematocrit 39.9 % (37.0-53.0); Hemoglobin 12.8 g/dL (13.5-17.5); IMMATURE GRAN ABSOLUTE AUTO 0.17 K/mm3 (0.00-0.10); IMMATURE GRAN PERCENT AUTO 1 % (0-1); LYMPHOCYTES ABSOLUTE AUTO 0.33 K/mm3 (0.84-5.20); LYMPHOCYTES PERCENT AUTO 1 % (21-46); MONOCYTES ABSOLUTE AUTO 0.47 K/mm3 (0.16-1.47); MONOCYTES PERCENT AUTO 2 % (4-13); Mean Corpuscular HGB Conc 32.1 g/dL (31.5-36.5); Mean Platelet Volume 9.4 fL (9.1-12.4); NEUTROPHILS ABSOLUTE AUTO 23.96 K/mm3 (1.96-9.15); NEUTROPHILS PERCENT AUTO 96 % (41-73); Platelet Count 244 K/mm3 (150-400); RDW Coefficient Variation 15.9 % (11.7-14.2); RDW Standard Deviation 54.4 fL (35.1-46.3); Red Blood Cell Count 4.26 M/mm3 (4.30-5.90); White Blood Cell Count 24.97 K/mm3 (4.00-11.30)
[2021-12-01 04:15] LABS: Mean Corpuscular Volume 94 fL (80-100)
[2021-12-01 04:50] LABS: Alanine Aminotransfer (ALT/SGP 58 U/L (12-78); Albumin, Blood 2.3 g/dL (3.4-5.0); Albumin/Globulin Ratio 0.8 (0.8-1.8); Alk Phos 67 U/L (50-136); Anion Gap 8 mmol/L (6-16); Aspartate Aminotrans (AST/SGOT 58 U/L (12-37); Bilirubin, Total 0.2 mg/dL (0.1-1.0); Blood Urea Nitrogen 57 mg/dL (8-24); Bun/Creatinine Ratio 47.9 (12.0-20.0); CO2, Blood 29 mmol/L (21-32); Calcium, Blood 7.9 mg/dL (8.5-10.1); Chloride, Blood 105 mmol/L (98-108); Creatinine, Blood 1.19 mg/dL (0.60-1.20); Globulin, Blood 2.9 g/dL (2.2-4.0); Glomerular Filtration Rate >60 (60-); Glucose, Blood 132 mg/dL (70-99); Magnesium, Blood 1.5 mg/dL (1.6-2.4); Phosphorus, Blood 4.6 mg/dL (2.5-4.9); Potassium, Blood 4.7 mmol/L (3.5-5.5); Sodium, Blood 142 mmol/L (136-145); Total Protein, Blood 5.2 g/dL (6.4-8.2)
[2021-12-01 05:28] LABS: PCO2 Arterial 47.7 mmHg (35-45); PO2 Arterial 68.3 mmHg (80-100); pH Blood Arterial 7.41 (7.35-7.45)
--- NOTE | 2021-12-01 05:52 | NUR ---
SHIFT SUMMARY PT REMAINS INTUBATED WITH VENT SETTINGS AC/VC 18/450/5/30%. HE IS RECEIVING PROPOFOL 40MCG/KG/MIN AND LR 100ML/HR. LEVOPHED HAS BEEN ON STANDBY SINCE APPROX 0500. HE OCCASIONALLY BECOMES ASYNCHRONOUS WITH VENT, GNAWS ON TUBE AND HR INCREASES TO 100S. THIS IS DURING REPOSITIONING, DURING CARE, OR WHEN SEDATION IS LOWERED. MEDICATED WITH FENTANYL PER EMAR. OGT CONNECTED TO LOW INT SUCTION WITH SMALL AMOUNT OF REDDISH BILE. FERRIS IS PATENT AND DRAINING CLEAR YELLOW URINE WITH SHIFT OUPUT OF 550ML. RECTAL TUBE IN PLACE DRAINING ODIFEROUS LIGHT BROWN STOOL TO GRAVITY. VSS AT THIS TIME. WILL REPORT TO ONCOMING RN.
--- NOTE | 2021-12-01 09:12 | NUR ---
ASSUMED CARE REPORT FROM STAN NATHAN AT 0700. PT INTUBATED AND SEDATED. PROPOFOL GTT FOR SEDATION. VENT SETTINGS AC/VC 18/450/5/30%. LUNGS CLEAR. SMALL THIN CLEAR SECRETIONS THROUGH ETT. COUGH REFLEX, NO GAG/SWALLOW. OPENS EYES TO PRESSURE. DOES NOT FOLLOW COMMANDS. WITHDRAWS FROM PAIN. LIGHT MOVEMENT TO ALL EXT. SR, RATE 100. BP STABLE. LEVO ON STANDBY. FERRIS PATENT, DRAINING CLEAR YELLOW URINE TO GRAVITY. OGT IN PLACE, CLAMPED AFTER MED ADM. RECTAL TUBE DRAINING LIQUID BROWN STOOL TO GRAVITY. CVC TO RIJ, DRESSING C/D/I. SKIN HAS MULITPLE AREAS OF DISCOLORATION/MOTTLING. SEE SKIN ASSESSMENT. WILL CONTINUE TO MONITOR.
--- NOTE | 2021-12-01 17:05 | NUR ---
SHIFT SUMMARY PT REMAINS INTUBATED. VENT SETTINGS SPONT 06/15/30% SINCE APPROX 0930 THIS AM. TOLERATING WELL. TV 500-600'S. LUNGS COARSE IN BASES. LARGE AMOUNT OF CLEAR THIN SECRETIONS FROM ETT, COPIOUS SUBGLOTTIAL SECRETIONS. PROPOFOL ON STANDBY. PT TRACKS STAFF FOR SHORT PERIOD OF TIME IN ROOM. DOES NOT FOLLOW COMMANDS. RHYTHMIC GRIPPING TO RIGHT HAND. SLIGHTLY WITHDRAWS EXT TO PAINFUL STIMULI. CAMILLE. ST ON MONITOR. RESTARTED HOME METOPROPOL. HR 100-120'S. BP STABLE. TIBE FEEDS STARTED THIS SHIFT. JEVITY 1.5 AT 25 ML/HR c 30 ML FLUSHES q4 HR, GOAL RATE 45 ML/HR. ABD FLAT, SOFT, NON TENDER. BT X 4. RECTAL TUBE IN PLACE, DRAINING BROWN LIQUID STOOL TO GRAVITY. FERRIS PATENT, 650 ML CLEAR YELLOW URINE OUT. DISCOLORATIONS TO ALL EXTREMITIES, COOL. PULSES PAL. WILL CONTINUE TO MONITOR UNTIL REPORT TO ONCOMING NURSE.
--- NOTE | 2021-12-01 20:48 | NUR ---
ASSUMED CARE PATIENT ALERT AND TRACKING NURSE AROUND ROOM. DOES NOT FOLLOW COMMANDS. BILATERAL WRIST RESTRAINTS. SEDATION OFF. PERRL. ETT 26 AT LIP, SPONT 10/5 30%, THIN CLEAR/YELLOW SECRETIONS, DIM LUNG SOUNDS. NSR 80S-90S. MAP>65. MOTTLED/COOL EXTREMITIES, STRONG PALPABLE PULSES. PATENT FERRIS CATH DRAINING CLEAR, YELLOW URINE. RECTAL TUBE WITH BROWN LIQUIDY STOOL. MULTIPLE SKIN ISSUES- SEE SKIN ASSESSMENT. WILL CONTINUE TO MONITOR OVERNIGHT
[2021-12-02 04:12] LABS: BASOPHILS ABSOLUTE AUTO 0.06 K/mm3 (0.00-0.23); BASOPHILS PERCENT AUTO 0 % (0-2); EOSINOPHILS PERCENT AUTO 0 % (0-6); Hematocrit 38.3 % (37.0-53.0); Hemoglobin 12.6 g/dL (13.5-17.5); IMMATURE GRAN ABSOLUTE AUTO 0.23 K/mm3 (0.00-0.10); IMMATURE GRAN PERCENT AUTO 1 % (0-1); LYMPHOCYTES ABSOLUTE AUTO 0.22 K/mm3 (0.84-5.20); LYMPHOCYTES PERCENT AUTO 1 % (21-46); MONOCYTES ABSOLUTE AUTO 0.88 K/mm3 (0.16-1.47); MONOCYTES PERCENT AUTO 3 % (4-13); Mean Corpuscular HGB Conc 32.9 g/dL (31.5-36.5); Mean Corpuscular Volume 91 fL (80-100); Mean Platelet Volume 9.8 fL (9.1-12.4); NEUTROPHILS ABSOLUTE AUTO 27.36 K/mm3 (1.96-9.15); NEUTROPHILS PERCENT AUTO 95 % (41-73); Platelet Count 257 K/mm3 (150-400); RDW Coefficient Variation 16.1 % (11.7-14.2); RDW Standard Deviation 54.2 fL (35.1-46.3); White Blood Cell Count 28.75 K/mm3 (4.00-11.30)
[2021-12-02 04:29] LABS: Anion Gap 3 mmol/L (6-16); Blood Urea Nitrogen 45 mg/dL (8-24); Bun/Creatinine Ratio 47.9 (12.0-20.0); CO2, Blood 33 mmol/L (21-32); Calcium, Blood 8.6 mg/dL (8.5-10.1); Chloride, Blood 108 mmol/L (98-108); Creatinine, Blood 0.94 mg/dL (0.60-1.20); Glomerular Filtration Rate >60 (60-); Glucose, Blood 147 mg/dL (70-99); Magnesium, Blood 1.8 mg/dL (1.6-2.4); Phosphorus, Blood 2.8 mg/dL (2.5-4.9); Potassium, Blood 4.7 mmol/L (3.5-5.5); Sodium, Blood 144 mmol/L (136-145)
--- NOTE | 2021-12-02 06:06 | NUR ---
SHIFT SUMMARY PATIENT REMAINS INTUBATED ON SPONT 06/15/30%. TOLERATING WELL. DIM/COURSE LUNG SOUNDS WITH MODERATE CLEAR/WHITE SECRETIONS. OFF ALL SEDATION. TRACKS STAFF IN ROOM, WILL WIGGLE TOES TO COMMAND. PERRL. NSR/ST 90S-1TEENS. SBP 130S-160S. 2+ PALPABLE PULSES. BILAT UE WARM, BILAT LE COOL WITH MOTTLING. JEVITY 1.5 @ GOAL OF 45 ML/HR WITH 30 ML FLUSHES Q4. HYPERACTIVE BT WITH RECTAL TUBE IN PLACE ~100 ML OUT. FERRIS PATENT. PATIENT SEEMS TO BE RESTING COMFORTABLY AT THIS TIME.
--- NOTE | 2021-12-02 07:45 | NUR ---
ASSUMED CARE REPORT FROM NADIA NATHAN AT 0700. PT INTUBATED. VENT SETTINGS SPONT 10/5/30%. TOLERATING WELL. TV 500-700ML. LUNGS CLEAR c WHEEZING IN RLL. CHANGE IN SECRETIONS SINCE YESTERDAY DAYSHIFT. THICK SELLERS THROUGH ETT. SR, RATE 100. BP STABLE. IMPROVEMENT IN MOTTLING. HANDS WARM, PINK, KNEES IMPROVED SINCE YESTERDAY DAY SHIFT. FEET STILL DISCOLORED AND COOL. PPP. ABD FLAT, SOFT, NON TENDER. BT X 4. TUBE FEEDS AT GOAL, 45 ML/HR c 30 ML FLUSH q4 HR. NO RESIDUALS THIS AM. RECTAL TUBE IN PLACE, BROWN LIQUID STOOL OUT. FERRIS PATENT, DRAINING CLEAR YELLOW URINE TO GRAVITY. CVC TO RIJ, DRESSING C/D/I. WILL CONTINUE TO MONITOR.
--- NOTE | 2021-12-02 16:59 | NUR ---
SHIFT SUMMARY NO ACUTE CHANGES THIS SHIFT. PT REMAINED ON SPONT MOST OF SHIFT, PLACED ON SIMV MODE AND AC/VC, TOLERATED SPONT BETTER. VENT SETTINGS SPONT 7/5/30%. LUNGS CLEAR. SMALL THICK SELLERS SECRETIONS THROUGH ETT. MAXIPINE ADDED THIS SHIFT FOR COVERAGE FOR PSEUDOMONAS. PT UP TO CHAIR MOST OF SHIFT. MORE ALERT. WIGGLES TOES AND SQUEEZES HANDS ON COMMAND. WEAK FACTORY ASSEMBLER. COUGH/GAG/SWALLOW REFLEX. TUBE FEEDS CHANGED TO JEVITY 1.5, GOAL INCREASED TO 50 ML/HR, NO RESIDUALS. FERRIS PATENT, DRAINING TO GRAVITY. RECTAL TUBE IN PLACE, SCANT DRAINAGE THIS SHIFT. WILL CONTINUE TO MONITOR UNTIL REPORT TO ONCOMING NURSE.
--- NOTE | 2021-12-02 18:20 | NUR ---
UPDATE PT BACK TO BED FROM CHAIR c LIFT. HR, BP AND RR INCREASED. UNRELIEVED BY FENTANYL. PROPOFOL STARTED AT 15 MCG/KG/MIN.
--- NOTE | 2021-12-02 20:00 | NUR ---
ASSUMED CARE RECEIVED REPORT FROM JAC CASSIDY AT 1900. PT IS INTUBATED ON SPONTANEOUS /, 30%. PROPOFOL ON FOR SEDATION AT 25MCG/KG/MIN. PT WILL BECOME TACHYPNEIC WITH RR IN 30-40'S WITH STIMULATION. HE IS ABLE TO TRACK STAFF IN ROOM, BUT NOT FOLLOWING COMMANDS. LUNGS ARE CLEAR, MODERATE AMOUNT OF THICK SELLERS SECRETIONS WITH ETT SUCTION. ETT IS 7.5 AND 26CM AT TEETH. BEING COVERED WITH MAXIPIME FOR PSEUDOMONAS IN SPUTUM. HR IS SINUS RHYTHM WITH RATE IN 90'S. BP HYPERTENSIVE, LIKELY D/T STIMULATION, MEDICATED WITH METOPROLOL PER EMAR. OG WITH JEVITY 1.2 TF AT GOAL OF 50ML WITH 30ML Q4H WATER FLUSH. 0 RESIDUALS. BOWEL TONES X4. RECTAL TUBE WITH MINIMAL BROWN LIQUID STOOL OUT. TEMP FERRIS PATENT, DRAINING YELLOW URINE TO GRAVITY. LOW GRADE TEMP OF 99.2. MOTTLING TO RIGHT LOWER LEG, COOL TO TOUCH, LEFT LOWER LEG IS WARM AND PINK. PULSES PALPABLE IN ALL EXTREMITIES. ORDERS REVIEWED, WILL TREAT PRESCRIBED.
[2021-12-03 04:16] LABS: BASOPHILS ABSOLUTE AUTO 0.02 K/mm3 (0.00-0.23); BASOPHILS PERCENT AUTO 0 % (0-2); EOSINOPHILS ABSOLUTE AUTO 0.01 K/mm3 (0.00-0.68); EOSINOPHILS PERCENT AUTO 0 % (0-6); Hematocrit 34.9 % (37.0-53.0); Hemoglobin 11.3 g/dL (13.5-17.5); IMMATURE GRAN ABSOLUTE AUTO 0.18 K/mm3 (0.00-0.10); IMMATURE GRAN PERCENT AUTO 1 % (0-1); LYMPHOCYTES PERCENT AUTO 3 % (21-46); MONOCYTES ABSOLUTE AUTO 1.57 K/mm3 (0.16-1.47); MONOCYTES PERCENT AUTO 7 % (4-13); Mean Corpuscular HGB 30.1 pg (26.0-34.0); Mean Corpuscular HGB Conc 32.4 g/dL (31.5-36.5); Mean Corpuscular Volume 93 fL (80-100); Mean Platelet Volume 9.4 fL (9.1-12.4); NEUTROPHILS ABSOLUTE AUTO 20.75 K/mm3 (1.96-9.15); NEUTROPHILS PERCENT AUTO 89 % (41-73); Platelet Count 204 K/mm3 (150-400); RDW Coefficient Variation 16.2 % (11.7-14.2); RDW Standard Deviation 55.2 fL (35.1-46.3); Red Blood Cell Count 3.76 M/mm3 (4.30-5.90); White Blood Cell Count 23.23 K/mm3 (4.00-11.30)
[2021-12-03 04:41] LABS: Anion Gap 1 mmol/L (6-16); Blood Urea Nitrogen 42 mg/dL (8-24); Bun/Creatinine Ratio 50.6 (12.0-20.0); CO2, Blood 37 mmol/L (21-32); Calcium, Blood 8.4 mg/dL (8.5-10.1); Chloride, Blood 107 mmol/L (98-108); Creatinine, Blood 0.83 mg/dL (0.60-1.20); Glomerular Filtration Rate >60 (60-); Glucose, Blood 111 mg/dL (70-99); Phosphorus, Blood 2.8 mg/dL (2.5-4.9); Potassium, Blood 4.6 mmol/L (3.5-5.5); Sodium, Blood 145 mmol/L (136-145)
--- NOTE | 2021-12-03 06:29 | NUR ---
PT REMAINS INTUBATED AND SEDATED. PROPOFOL AT 35MCG/KG/MIN, FENTANYL IV PRN TO HELP WITH TACHYPNEA. VENT REMAINED ON SPONTANEOUS 7/5, 30% ALL NIGHT, TIDAL VOLUMES 500-700, SPO2 >90%. MODERATE AMOUNT OF THICK, SELLERS SECRETIONS WITH ETT SUCTIONING. ABLE TO TRACK, OPENS EYES TO VOICE, WEAKLY SQUEEZES HANDS AND WIGGLES TOES. HR REMAINED SR WITH RATE 80-90'S, HOWEVER HAD A SHORT RUN OF SINUS TACH, RATE 130'S AT 0502. BP STABLE. MOTTLING IN BLE HAS IMPROVED, BOTH BLE ARE WARM TO TOUCH, PULSES PALPABLE. BILATERAL HANDS REMAIN COOL TO TOUCH. OG CONTINUES WITH TUBE FEED AT GOAL OF 50ML/HR, MINIMAL RESIDUALS Q4H. MINIMAL OUTPUT IN RECTAL TUBE. TEMP FERRIS PATENT, DRAINED 1150ML OUT THIS SHIFT. FEBRILE, TMAX 99.4. WILL REPORT TO ONCOMING SHIFT WHEN AVAILABLE.
--- NOTE | 2021-12-03 18:27 | NUR ---
SUMMARY PT INTUBATED AND LIGHTLY SEDATED WITH PROPOFOL. HAS BEEN ON SPONTANEOUS ALL DAY. PRESSURE SUPPORT WAS ANYWHERE FROM 7-12, NOW ON 8 WITH FIO2 30%. DID NOT GET EXTUBATED TODAY DUE TO A LOT OF SECRETIONS FROM ETT. PT WILL OPEN EYE'S TO NAME. TRACKS WITH EYE'S, FIBERGLASS FINISHER EQUALLY WITH HANDS BUT VERY WEAK, AND MOVES FEET ON COMMAND. UP TO RECLINER CHAIR FOR 3 HOURS BEFORE HE BECAME AGITATED AND HAD TO GO BACK TO BED. NO OTHER CHANGES THIS SHIFT.
[2021-12-04 04:24] LABS: BASOPHILS ABSOLUTE AUTO 0.01 K/mm3 (0.00-0.23); BASOPHILS PERCENT AUTO 0 % (0-2); EOSINOPHILS PERCENT AUTO 0 % (0-6); Hematocrit 34.7 % (37.0-53.0); Hemoglobin 11.2 g/dL (13.5-17.5); IMMATURE GRAN ABSOLUTE AUTO 0.12 K/mm3 (0.00-0.10); IMMATURE GRAN PERCENT AUTO 1 % (0-1); LYMPHOCYTES ABSOLUTE AUTO 0.69 K/mm3 (0.84-5.20); LYMPHOCYTES PERCENT AUTO 4 % (21-46); MONOCYTES PERCENT AUTO 8 % (4-13); Mean Corpuscular HGB 29.9 pg (26.0-34.0); Mean Corpuscular HGB Conc 32.3 g/dL (31.5-36.5); Mean Corpuscular Volume 93 fL (80-100); Mean Platelet Volume 9.7 fL (9.1-12.4); NEUTROPHILS ABSOLUTE AUTO 16.66 K/mm3 (1.96-9.15); NEUTROPHILS PERCENT AUTO 88 % (41-73); Platelet Count 195 K/mm3 (150-400); RDW Coefficient Variation 15.9 % (11.7-14.2); RDW Standard Deviation 54.7 fL (35.1-46.3); Red Blood Cell Count 3.74 M/mm3 (4.30-5.90); White Blood Cell Count 18.98 K/mm3 (4.00-11.30)
[2021-12-04 04:43] LABS: Alanine Aminotransfer (ALT/SGP 30 U/L (12-78); Albumin, Blood 2.2 g/dL (3.4-5.0); Albumin/Globulin Ratio 0.7 (0.8-1.8); Alk Phos 59 U/L (50-136); Anion Gap 2 mmol/L (6-16); Aspartate Aminotrans (AST/SGOT 17 U/L (12-37); Bilirubin, Total 0.3 mg/dL (0.1-1.0); Blood Urea Nitrogen 39 mg/dL (8-24); Bun/Creatinine Ratio 51.2 (12.0-20.0); CO2, Blood 35 mmol/L (21-32); Calcium, Blood 8.7 mg/dL (8.5-10.1); Chloride, Blood 105 mmol/L (98-108); Creatinine, Blood 0.76 mg/dL (0.60-1.20); Globulin, Blood 3.2 g/dL (2.2-4.0); Glomerular Filtration Rate >60 (60-); Glucose, Blood 114 mg/dL (70-99); Magnesium, Blood 1.7 mg/dL (1.6-2.4); Phosphorus, Blood 3.1 mg/dL (2.5-4.9); Potassium, Blood 4.5 mmol/L (3.5-5.5); Sodium, Blood 142 mmol/L (136-145); Total Protein, Blood 5.4 g/dL (6.4-8.2)
--- NOTE | 2021-12-04 06:40 | NUR ---
SHIFT SUMMARY PROPOFOL DECREASED TO 20MCG/KG/MIN AND REMAINED ON SPONTANEOUS 8/5 FIO2 30% T/O SHIFT. HAD PERIODS OF DESATTING THAT RESOLVED W/ SUCTIONING AND DECREASING SEDATION. LUNG SOUNDS REMAINED CLEAR. REQUIRED ONE DOSE OF FENTANYL 5MCG IV FOR PAIN AFTER REPOSITIONING. TF REMAINED AT GR 40ML/HR WITH NO RESIDUALS. RECTAL TUBE HAD 150ML OF STOOL OUT, RECTAL TUBE REPLACED AFTER DISLODGING WITH FINAL TURN. NODS "YES/NO" WHEN SEDATION IS TURNED DOWN, FOLLOWS COMMANDS. TACHYPEIC AT TIMES BUT IS EASILY ABLE TO BE CONSOLED AND REDIRECTED VERBALLY. FERRIS PATENT AND DRAINED 600ML OF YELLOW CLEAR URINE. NO OTHER MAJOR CHANGES DURING SHIFT.
--- NOTE | 2021-12-04 10:26 | NUR ---
PT HAS BEEN OFF SEDATION SINCE 739. FOLLOWING COMMANDS. EXTUBATED AT 1006 TO 3L NC. SPO2 98%, PT CLEARING SECRETIONS WELL. NO SIGN OF DISTRESS.
--- NOTE | 2021-12-04 18:22 | NUR ---
SUMMARY PT EXTUBATED TODAY AT 1005. PT IS ABLE TO FOLLOW COMMANDS. SOMETIMES CONFUSED TO WHERE HE IS AND OTHER TIMES HE IS ORIENTED TO SELF AND PLACE. PT WAS ANXIOUS THIS AFTERNOON SAYING HE COULDN'T BREATHE. SPO2 GREATER THAN 90% AND PT WAS NOT WORKING HARD TO BREATHE. LS HAD SOME FINE CRACKLES. PULLING OFF TELE LEADS AND SPO2 PROBE CONSTANTLY. DR. ARITA ORDERED A DOSE OF ATIVAN WHICH WORKED WELL AND PT WAS ABLE TO REST. NO OTHER CHANGES THIS SHIFT.
[2021-12-05 04:30] LABS: BASOPHILS ABSOLUTE AUTO 0.01 K/mm3 (0.00-0.23); BASOPHILS PERCENT AUTO 0 % (0-2); EOSINOPHILS ABSOLUTE AUTO 0.01 K/mm3 (0.00-0.68); EOSINOPHILS PERCENT AUTO 0 % (0-6); Hematocrit 34.3 % (37.0-53.0); Hemoglobin 11.1 g/dL (13.5-17.5); IMMATURE GRAN ABSOLUTE AUTO 0.15 K/mm3 (0.00-0.10); IMMATURE GRAN PERCENT AUTO 1 % (0-1); LYMPHOCYTES PERCENT AUTO 5 % (21-46); MONOCYTES ABSOLUTE AUTO 1.55 K/mm3 (0.16-1.47); MONOCYTES PERCENT AUTO 10 % (4-13); Mean Corpuscular HGB Conc 32.4 g/dL (31.5-36.5); Mean Corpuscular Volume 93 fL (80-100); Mean Platelet Volume 9.7 fL (9.1-12.4); NEUTROPHILS ABSOLUTE AUTO 12.71 K/mm3 (1.96-9.15); NEUTROPHILS PERCENT AUTO 83 % (41-73); Platelet Count 215 K/mm3 (150-400); RDW Coefficient Variation 15.4 % (11.7-14.2); White Blood Cell Count 15.23 K/mm3 (4.00-11.30)
[2021-12-05 04:47] LABS: Anion Gap 3 mmol/L (6-16); Blood Urea Nitrogen 32 mg/dL (8-24); Bun/Creatinine Ratio 51.5 (12.0-20.0); CO2, Blood 36 mmol/L (21-32); Calcium, Blood 8.5 mg/dL (8.5-10.1); Chloride, Blood 100 mmol/L (98-108); Creatinine, Blood 0.62 mg/dL (0.60-1.20); Glomerular Filtration Rate >60 (60-); Glucose, Blood 78 mg/dL (70-99); Potassium, Blood 4.4 mmol/L (3.5-5.5); Sodium, Blood 139 mmol/L (136-145)
--- NOTE | 2021-12-05 07:49 | NUR ---
PT AWAKE THIS AM YELLING "HELP". PT IS A/O TO SELF, PLACE, AND CITY. ABLE TO MOVE ALL EXTREMITIES ON COMMAND JUST WEAK T/O. COULD NOT REMEMBER WHAT HAPPENED BEFORE COMING TO HOSPITAL. C/O PAIN IN CHEST, WORSE WHEN HE BREATHES IN. PT HAD CPR ENROUTE TO HOSPITAL. MOANS IN PAIN WHEN REPOSITIONED IN BED. FENTANYL GIVEN. LS COARSE T/O. HAS MOIST COUGH AND WEAK EFFORT. SPO2 GREATER THAN 90% ON 3L NC.
--- NOTE | 2021-12-05 17:20 | NUR ---
SUMMARY PT A/O TO SELF, PLACE, AND CITY TODAY. ANSWERING QUESTIONS APPROPRIATELY. MOVING ALL EXTREMITIES AND EVEN STARTING TO TURN SELF IN BED AT TIMES. PT IS WEAK AND PAINFUL FROM CPR. FENTANYL GIVEN FOR PAIN WHICH WORKS WELL FOR PT. DID BEDSIDE SWALLOW EVAL THIS AM BUT WAS UNSURE IF PT WAS COUGHING IN RELATION TO WATER OR JUST COUGHING BECAUSE HE HAS A COUGH. ABLE TO CLEAR SECRETIONS AND COUGH IS STRONGER TODAY. NO DROP IS SPO2 DURING SWALLOW EVAL. DR. KIMBALL OKAY'D PT TO TRY ICE CREAM WITH SUPERVISION AND PT DID WELL WITH IT. PT EVEN ABLE TO FEED HIMSELF. STRONG VOICE WELL ABLE TO CONVERSE WITH RN WHILE AT THE NURSES STATION. SPEECH EVAL PLACED TO FIGURE OUT CONSISTENCY OF FOOD TO TAKE IN. CALLED NATALIIA CALZADA HOSPITALIST ABOUT METOPROLOL BEING ON SHORTAGE AND SHE SAID SHE WOULD CALL PHARMACY ABOUT GETTING LABETOLOL EQUIVALENT. POWERGLIDE PLACED THIS EVENING SO CENTRAL LINE CAN BE REMOVED. PT WAS DOWNGRADED TO MEDICAL STATUS TODAY. WILL BE MOVING TO ROOM 361. REPORT GIVEN TO CHLOE NATHAN.
--- NOTE | 2021-12-05 18:31 | NUR ---
PT TRANSFER FROM ICU #3 AT 1755, BED TO BED SLIDE TX. PT ORIENTED TO SELF AND THAT HE'S AT [facility]. STATES HE IS IN [place] AND THE PRESIDENT IS STACI LOMAS. YEAR 2024. ORIENTED TO ROOM SET UP AND CALL LIGHT. REINFORCED NEVER TO GET UP UNATTENDED, STATES UNDERSTANDING. SET BED ALARM. PT HAS A DARK PALOR, FEET CYANOTIC AND COLD, KNEES MOTTLED. CALL TO DR Jose WILLIAM, ORDER TO DC TELE. INFORMED OF PT NPO AND NO TUBE FEEDS NEEDING IVF. ORDER RECEIVED FOR NS. CALLED RT TO SET UP CONT PULSE OX. PT HAS MOIST COUGH, MIN PRODUCTION. ENCOURAGED COUGH BUT NOT MOTIVATED. WANTS TO FALL ASLEEP. VERY PAINFUL WHEN MOVING SIDE TO SIDE BUT NOT PAINFUL LAYING STILL. NOT WANTING TO MEDICATE WHILE SO SLEEPY. SET UP SUCTION AND WILL GET FLUTTER AND IS ORDERED.
[2021-12-06] MEDS ORDERED: AMOX500 PO (00:16)
[2021-12-06 04:24] LABS: BASOPHILS ABSOLUTE AUTO 0.03 K/mm3 (0.00-0.23); BASOPHILS PERCENT AUTO 0 % (0-2); EOSINOPHILS ABSOLUTE AUTO 0.02 K/mm3 (0.00-0.68); EOSINOPHILS PERCENT AUTO 0 % (0-6); Hematocrit 39.4 % (37.0-53.0); Hemoglobin 12.6 g/dL (13.5-17.5); IMMATURE GRAN ABSOLUTE AUTO 0.22 K/mm3 (0.00-0.10); IMMATURE GRAN PERCENT AUTO 1 % (0-1); LYMPHOCYTES ABSOLUTE AUTO 0.85 K/mm3 (0.84-5.20); LYMPHOCYTES PERCENT AUTO 5 % (21-46); MONOCYTES ABSOLUTE AUTO 1.58 K/mm3 (0.16-1.47); MONOCYTES PERCENT AUTO 9 % (4-13); Mean Corpuscular HGB 29.8 pg (26.0-34.0); Mean Corpuscular Volume 93 fL (80-100); Mean Platelet Volume 9.6 fL (9.1-12.4); NEUTROPHILS ABSOLUTE AUTO 14.19 K/mm3 (1.96-9.15); NEUTROPHILS PERCENT AUTO 84 % (41-73); Platelet Count 263 K/mm3 (150-400); RDW Coefficient Variation 14.9 % (11.7-14.2); RDW Standard Deviation 51.2 fL (35.1-46.3); Red Blood Cell Count 4.23 M/mm3 (4.30-5.90); White Blood Cell Count 16.89 K/mm3 (4.00-11.30)
[2021-12-06 04:42] LABS: Anion Gap 4 mmol/L (6-16); Blood Urea Nitrogen 33 mg/dL (8-24); Bun/Creatinine Ratio 48.7 (12.0-20.0); CO2, Blood 34 mmol/L (21-32); Calcium, Blood 8.7 mg/dL (8.5-10.1); Chloride, Blood 99 mmol/L (98-108); Creatinine, Blood 0.68 mg/dL (0.60-1.20); Glomerular Filtration Rate >60 (60-); Glucose, Blood 81 mg/dL (70-99); Potassium, Blood 4.1 mmol/L (3.5-5.5); Sodium, Blood 137 mmol/L (136-145)
--- NOTE | 2021-12-06 04:44 | NUR ---
SHIFT SUMMARY ALERT TO SELF WITH CONFFUSION PT NOTED REMOVING HIS N/C SEVERAL TIMES REDIRECT LUNGS SOUND WHEEZING GILBERT NEB TX ADM WITH RELIEF NO SOB NOTED DENIES CHEST PAIN.KEKE HERNANDEZ DRANING MICHAEL URINE CONT N/S AT 100ML.SAFETY IN PLACE CALL LIGHT WITHIN REACH
--- NOTE | 2021-12-06 07:55 | NUR ---
RESPIRATORY STATUS CHANGE- RECIEVED A CALL FROM SCREENPLAY WRITER PT O2 SATS ON MORNING VITALS WERE LOW 80'S, CALLED RT LOPEZ TO ASSIST. RT ARRIVED AND BEGAN ASSISTING WITH THE PT RESPIRATORY ISSUE. O2 WAS INCREASED TO 6L VIA NC, THEN PT WAS PLACED ON A VENTURI MASK. CALLED DR ZHENG TO ASSESS PT FOR POSSIBLE TRANSFER BACK TO PCU FOR BI-PAP DEPENDENCE. DR ZHENG CAME TO SEE THE PT, ORDERED A 1 VIEW CHEST XRAY, VBG AND OTHER LABS, LINE DRAW PERFORMED, PG DRAWS WELL. PT LUNG SOUNDS ARE VERY WET. PT PLACED ON BIPAP BY RT AND SATS ARE HOLDING LOW 90'S AT THIS TIME. PT TO TRANSFER TO PCU 18. PPT APPEARS TO HAVE STABILIZED AT THIS TIME WILL CTM UNTIL TRANSFER TO PCU.
[2021-12-06 08:39] LABS: Base Excess Venous 10.6 mmol/L; Bicarbonate Venous 32.2 mmol/L (24.0-30.0); PCO2 Venous 55.5 mmHg (38-42); pH Blood Venous 7.41 (7.34-7.37)
--- NOTE | 2021-12-06 09:00 | NUR ---
TRANSFER NOTE- PPT TRANSFERED TO PCU ON BIPAP STILL LETHARGIC BUT COOPERATIVE WITH CARE. BEDSIDE REPORT COMPLETED WITH AIR CONDITIONING UNIT TESTER. RT PRESENT AND ASSISTED WITH PT TRANSFER. NO FURTHER QUESTIONS AFTER REPORT. PT SEEMS TO BE MORE STABLE AND MAINTAINING SATS ON BIPAP.
--- NOTE | 2021-12-06 17:51 | NUR ---
SHIFT SUMMARY: PT TRANSFERS F/MEDICAL DEPT, ARRIVES APPROX 0900. PT ARRIVES ON BIPAP, TOLERATES WELL AT FIRST THEN BECOMES AGITATED AND CONTINUALLY PULLING AT/REMOVING MASK WITH QUICK DESATURATION. PT NOT RESPONDING TO EFFORTS TO REORIENT, MEDICATED W/PRN MEDS PER ORDERS, THEN PT TRANSITIONED TO VENTURI MASK AND EVENTUALLY NC. PT CURRENTLY MAINTAINING 02 SATS >92% ON 4L/MIN. PT EVALUATED BY ST, ORDERS IN PLACE UNTIL REASSESSMENT TOMORROW, PT CONTINUES NPO EXCEPT SIPS OF WATER AFTER ORAL CARE. CT PE STUDY COMPLETED TODAY. AT THIS TIME, PT RESTING QUIETLY IN BED. NS INFUSING AT 100/HR. WCTM UNTIL CHANGE OF SHIFT.
[2021-12-07 04:39] LABS: BASOPHILS ABSOLUTE AUTO 0.03 K/mm3 (0.00-0.23); BASOPHILS PERCENT AUTO 0 % (0-2); EOSINOPHILS PERCENT AUTO 0 % (0-6); Hematocrit 38.8 % (37.0-53.0); Hemoglobin 12.2 g/dL (13.5-17.5); IMMATURE GRAN ABSOLUTE AUTO 0.22 K/mm3 (0.00-0.10); IMMATURE GRAN PERCENT AUTO 1 % (0-1); LYMPHOCYTES ABSOLUTE AUTO 0.54 K/mm3 (0.84-5.20); LYMPHOCYTES PERCENT AUTO 3 % (21-46); MONOCYTES ABSOLUTE AUTO 1.21 K/mm3 (0.16-1.47); MONOCYTES PERCENT AUTO 7 % (4-13); Mean Corpuscular HGB 29.5 pg (26.0-34.0); Mean Corpuscular HGB Conc 31.4 g/dL (31.5-36.5); Mean Corpuscular Volume 94 fL (80-100); NEUTROPHILS ABSOLUTE AUTO 14.71 K/mm3 (1.96-9.15); NEUTROPHILS PERCENT AUTO 88 % (41-73); Platelet Count 329 K/mm3 (150-400); RDW Coefficient Variation 14.7 % (11.7-14.2); RDW Standard Deviation 50.6 fL (35.1-46.3); Red Blood Cell Count 4.14 M/mm3 (4.30-5.90); White Blood Cell Count 16.71 K/mm3 (4.00-11.30)
[2021-12-07 05:03] LABS: Anion Gap 5 mmol/L (6-16); Blood Urea Nitrogen 27 mg/dL (8-24); Bun/Creatinine Ratio 38.7 (12.0-20.0); CO2, Blood 33 mmol/L (21-32); Calcium, Blood 8.6 mg/dL (8.5-10.1); Chloride, Blood 100 mmol/L (98-108); Glomerular Filtration Rate >60 (60-); Glucose, Blood 79 mg/dL (70-99); Potassium, Blood 4.6 mmol/L (3.5-5.5); Sodium, Blood 138 mmol/L (136-145)
--- NOTE | 2021-12-07 05:47 | NUR ---
SHIFT SUMMARY NO ACUTE CHANGES THIS SHFIT. VSS. ALERT BUT CONFUSED AT TIMES. IN SR PACS. ON 4LNC, THEN SWITCHED TO BIPAP 12/5 35% FOR AROUND 4 HOURS WHILE SLEEPING UNTIL PT BEGAN TO NOT TOLERATE. SWITCHED BACK TO NC. ORAL CARE BEING COMPLETED. FERRIS PATENT AND DRAINING. PAIN CONTINUES TO L RIBS, MEDS PER EMAR. LUNG SOUNDS CONTIMNUE VERY COARSE, MORESO TO LEFT SIDE. PG PATENT TO WENDY, NS INFUSING AT 100MLS/HR. PT NPO. BEDREST. BED ALARM IN PLACE. CALL LIGHT WITHIN REACH BUT PT JUST YELLS OUT.
--- NOTE | 2021-12-07 18:42 | NUR ---
SHIFT SUMMARY PT A&O TO SELF. PT YELLS OUT WHEN NEEDING SOMETHING. SPO2 > 92% ON 3-5L NC THIS SHIFT. BREATHING TX's PROVIDED PER RT. PT BP ELEVATED, MD ZHENG W/ ORDER TO "HOLD" NS GTT FOR NOW. MONITOR SHOWING SR-ST W/ PAC's & PVC's, HR 80's-110's INITIALLY w/ HR NOW RANGING 100-150's W/ RHYTHM INTERMITTENTLY IRREGULAR. CALL TO MD ZHENG TO REPORT PT HEART RATE/RHYTHM W/ ORDER FOR PO METOPROLOL, SEE ORDER. PT SEEN BY ST TODAY W/ PT ADVANCED TO MECHANICAL SOFT DIET. PT REQUIRING FEEDING/SUPERIVION FOR PO INTAKE. ST W/ ORDERS FOR PT TO REMAIN UPRIGHT 30-60 MIN POST PO INTAKE, PT YELLING OUT AFTER EVERY PO INTAKE, REQUESTING TO "PUT ME FLAT" OR "LAY ME BACK!" PT CALM WHEN LAYING BACK.
[2021-12-08 03:55] LABS: Anion Gap 5 mmol/L (6-16); Blood Urea Nitrogen 28 mg/dL (8-24); Bun/Creatinine Ratio 40.3 (12.0-20.0); CO2, Blood 34 mmol/L (21-32); Calcium, Blood 8.5 mg/dL (8.5-10.1); Chloride, Blood 99 mmol/L (98-108); Glomerular Filtration Rate >60 (60-); Glucose, Blood 111 mg/dL (70-99); Potassium, Blood 4.7 mmol/L (3.5-5.5); Sodium, Blood 138 mmol/L (136-145)
[2021-12-08 04:00] LABS: BASOPHILS ABSOLUTE AUTO 0.03 K/mm3 (0.00-0.23); BASOPHILS PERCENT AUTO 0 % (0-2); EOSINOPHILS PERCENT AUTO 0 % (0-6); Hematocrit 37.7 % (37.0-53.0); IMMATURE GRAN ABSOLUTE AUTO 0.25 K/mm3 (0.00-0.10); IMMATURE GRAN PERCENT AUTO 1 % (0-1); LYMPHOCYTES ABSOLUTE AUTO 0.71 K/mm3 (0.84-5.20); LYMPHOCYTES PERCENT AUTO 4 % (21-46); MONOCYTES ABSOLUTE AUTO 2.08 K/mm3 (0.16-1.47); MONOCYTES PERCENT AUTO 11 % (4-13); Mean Corpuscular HGB 29.6 pg (26.0-34.0); Mean Corpuscular HGB Conc 31.8 g/dL (31.5-36.5); Mean Corpuscular Volume 93 fL (80-100); NEUTROPHILS ABSOLUTE AUTO 15.83 K/mm3 (1.96-9.15); NEUTROPHILS PERCENT AUTO 84 % (41-73); Platelet Count 317 K/mm3 (150-400); RDW Coefficient Variation 14.4 % (11.7-14.2); RDW Standard Deviation 49.4 fL (35.1-46.3); Red Blood Cell Count 4.05 M/mm3 (4.30-5.90)
--- NOTE | 2021-12-08 05:44 | NUR ---
SHIFT SUMMARY NO ACUTE CHANGES THIS SHIFT. PT ALERT, ORIENTED TO SELF. PT STATES "TAKE ME TO HOSIPTAL, IM IN MY ROOM". SP02>92% ON 5L NC. PRN BREATHING TX. PT TOOK NC AND OXYGEN PROBE OF MULTIPLE TIMES, DESAT TO HIGH 70'S. TELEMTRY SHOWS NSR. HTN THIS SHIFT, PRN LOPRESSOR GIVEN PER EMAR X1. NO BM THIS SHIFT. FERRIS CATHETER DRAINING TO GRAVITY. DURING START OF SHIFT ASSESSMENT, PT BEGAN TO STATE HE COULDNT BREATH AND NEEDED TO GET TO THE HOPSITAL. ATIVAN GIVEN PER EMAR X1. PT C/O OF PAIN DURING SHIFT, MEDICATION GIVEN PER EMAR. PT CURRENTLY ASLEEP IN ROOM. CALL LIGHT IN REACH.
--- NOTE | 2021-12-08 09:46 | NUR ---
CARE ASSUMPTION PT A&O TO SELF. PT STATING LOCATION "[place]." BUT PT UNABLE TO STATE TOWN OR TYPE OF ESTABLISHMENT CURRENTLY IN." PT STATING YEAR "2000." PT UNABLE TO DESCRIBE PAIN, STATING PAIN "UNDESCRIBABLE." WHEN ASKING PT FOR PAIN LEVEL ON A SCALE FROM 1-10 PT RESPONDING "BETTER" THOUGH STAFF ASKING FOR A NUMBER MULTIPLE TIMES. PT EVENTUALLY STATING "9." PT THEN QUICKLY BACK TO SLEEP, UNABLE TO REMAIN AWAKE T/O QUESTIONS & ASSESSMENT. NON-ORAL MEDICATIONS ADMINISTERED PER EMAR THIS AM, BUT PO MEDICATIONS HELD FOR NOW UNTIL PT ABLE TO REMAIN AWAKE & FOLLOW INSTRUCTIONS TO SAFELY SWALLOW. BREAKFAST AT BEDSIDE UNTOUCHED. VSS. SPO2 > 92% ON 5L NC TITRATED TO 2L NC SO FAR. MONITOR SHOWING SR W/ PAC's & PVC's, HR 60s-70s. FERRIS CATH PATENT & DRAINING. PT SLEEPING. WILL CONTINUE TO MONITOR & PROVIDE CARE ABLE.
--- NOTE | 2021-12-08 10:56 | NUR ---
UPDATE PT NOW FULLY AWAKE, ABLE TO SAFELY TOLERATE PO INTAKE W/ SUPERVISION. SCHEDULED PO AM MEDS NOW GIVEN. ORIENTATION RE-ASSESSED, PT STATING LOCATION "[facility]." PT DENIES KNOWING WHERE HE IS EXACTLY. WHEN ASKING PT IF IT LOOKS LIKE A SCHOOL, A HOSPITAL, GROCERY STORE, NURSING HOME, OR SOMEONE'S HOME, PT STATES "NURSING HOME." PT REPORTING DATE "September." PT CHUCKLING WHEN ATTEMPTING TO ANSWER QUESTIONS. PT DENYING NEEDS AT THIS TIME. BED ALARM ON. WILL CONTINUE TO MONITOR.
--- NOTE | 2021-12-08 18:47 | NUR ---
TRANSFER TO MEDICAL FLOOR PT TAKEN UP TO MEDICAL FLOOR RM 302 @ APPROX 1830 BY WHEEL CHAIR AFTER GIVING REPORT TO ACCEPTING RN. TELE IN PLACE. SPO2 > 92% ON 3L NC. PT C/O "NOT FEELING GOOD" W/ EPISODE OF EMESIS AT TIME OF TRANSFER. ACCEPTING RN NOTIFIED. PT 2 PERSON STAND/PIVOT ASSIST FOR TRANSFER.
--- NOTE | 2021-12-08 18:53 | NUR ---
PT ARRIVED 1834 VIA WHEEL CHAIR. PT STATING HE DOES NOT FEEL WELL. PT HAS EMESIS BAG IN HAND. BED ALARM IS IN PLACE AND CALL LIGHT WITHIN REACH. WILL CONTINUE TO MONITOR.
--- NOTE | 2021-12-09 04:27 | NUR ---
PT IS ASLEEP THIS MORNING. PT BEGAN TO BECOME AGITATED OVERNIGHT AND STARTED TO TRY TO GET OUT OF BED. PT IS ALERT AND ORIENTED TO SELF ONLY. PT DOES STATE INAPPROPRIATE THINGS AT TIMES. MEDICATED FOR AGITATION PER EMAR. PT USED BETWEEN 2-3L OF O2 TONIGHT, TELE MONITORED NSR-ST, PT DOES DOES C/O SOB AND IS ON 2L O2 CURRENTLY PT DOES HAVE A NON-PRODUCTIVE WEAK COUGH. RECOMENDED TO CHARGE NURSE TO POSSIBLE MOVE PT TO SCU FOR BETTER MONITORING. PT Q2H TURNED AND OFFERED FLUIDS THROUGHOUT SHIFT.
[2021-12-09 06:05] LABS: BASOPHILS ABSOLUTE AUTO 0.02 K/mm3 (0.00-0.23); BASOPHILS PERCENT AUTO 0 % (0-2); EOSINOPHILS ABSOLUTE AUTO 0.02 K/mm3 (0.00-0.68); EOSINOPHILS PERCENT AUTO 0 % (0-6); Hematocrit 35.6 % (37.0-53.0); Hemoglobin 11.4 g/dL (13.5-17.5); IMMATURE GRAN ABSOLUTE AUTO 0.18 K/mm3 (0.00-0.10); IMMATURE GRAN PERCENT AUTO 1 % (0-1); LYMPHOCYTES ABSOLUTE AUTO 0.93 K/mm3 (0.84-5.20); LYMPHOCYTES PERCENT AUTO 7 % (21-46); MONOCYTES ABSOLUTE AUTO 1.51 K/mm3 (0.16-1.47); MONOCYTES PERCENT AUTO 12 % (4-13); Mean Corpuscular HGB 29.5 pg (26.0-34.0); Mean Corpuscular Volume 92 fL (80-100); Mean Platelet Volume 9.2 fL (9.1-12.4); NEUTROPHILS ABSOLUTE AUTO 10.31 K/mm3 (1.96-9.15); NEUTROPHILS PERCENT AUTO 79 % (41-73); Platelet Count 332 K/mm3 (150-400); RDW Coefficient Variation 14.5 % (11.7-14.2); RDW Standard Deviation 49.2 fL (35.1-46.3); Red Blood Cell Count 3.87 M/mm3 (4.30-5.90); White Blood Cell Count 12.97 K/mm3 (4.00-11.30)
[2021-12-09 06:27] LABS: Anion Gap 4 mmol/L (6-16); Blood Urea Nitrogen 21 mg/dL (8-24); Bun/Creatinine Ratio 31.6 (12.0-20.0); CO2, Blood 36 mmol/L (21-32); Calcium, Blood 8.4 mg/dL (8.5-10.1); Chloride, Blood 99 mmol/L (98-108); Creatinine, Blood 0.66 mg/dL (0.60-1.20); Glomerular Filtration Rate >60 (60-); Glucose, Blood 99 mg/dL (70-99); Potassium, Blood 3.8 mmol/L (3.5-5.5); Sodium, Blood 139 mmol/L (136-145)
--- NOTE | 2021-12-09 13:12 | NUR ---
PT AOX1, PT RESTLESS IN BED, DIFFICULT TO REDIRECT, C/O OF FEELING SICK, BUT NOT SURE WHY HE IS IN THE HOSPITAL. IV PRN FOR PAIN AND DISCOMFORT, PRN EFFECTIVE. PT TRYING TO GET OUT OF BED, PULLING AT CATH. MOVED PATIENT TO SCU, REPORT CALLED TO ZAID NATHAN. TELE NOTIFIED NURSE PTS HR > 130S, 3 BEATS OF VTACH.
--- NOTE | 2021-12-09 15:59 | NUR ---
SHIFT SUMMARY; PATIENT TRANSFERRED FROM ROOM 302 TO ROOM 345 AFTER LUNCH TODAY. PATIENT IS AGITATED AND TRIES MULTIPLE TIMES TO THROW HIMSELF OFF BED AND IS A FALL RISK. HE IS NON VERBAL AND PULLS OFF TELE LEADS AND IS NOTED TO PULL ON HIS FERRIS CATHETER. DECISION TO PLACE HIM IN ARLEN VEST WITH 4 BED RAILS UP AND SOFT RESTRAINTS TO KEEP HIS FERRIS CATHETER FROM BEING PULLED AND CAUSING HIM MUCH HARM. PATIENT IS PROVIDED WITH ZYPREXA WITH MODERATE SUCCESS HE IS NOTED TO SLEEP FOR 15 TO 20 MINUTES AT A TIME BETWEEN PULLING AT RESTRAINTS. HIS RHYTHM CURRENTLY NSR AT 78. WILL CONTINUE TO MONITOR CLOSELY AND OFFER DISTRACTIONS TO PULLING AT LINES AND TUBES.
--- NOTE | 2021-12-10 03:40 | NUR ---
SHIFT SUMMARY 65 YR M ADMITTED ON 11/30/21 FOR ME. FULL CODE. PT HAS BEEN AGITATED OFF AND ON DURING THIS SHIFT. WHEN HE IS AGITATED, HE PULLS HIS PANTS DOWN, PULLS AT HIS FERRIS, AND PULLS AT HIS TELE WIRES. HE DOES NOT FOLLOW VERBAL SUGGESTION OR COMMAND. HE HAS CONTINUALLY YELLED OUT LOUDLY AND INCOHERANTLY DURING THIS SHIFT. PER LICENSED TAX CONSULTANT, HR WAS RUNNING IN THE 140-150'S FOR 30 MIN OR MORE AT A TIME. GOT AN ORDER FOR 5 MG LOPRESSOR IV AND HR WENT MOSTLY BACK DOWN TO WITHIN NORMAL RANGE. HE TOOK PART OF HIS MEDS CRUSHED IN APPLESAUCE, BUT REFUSED PART OF THEM WELL. THORAZINE ORDER WAS CHANGED TO IM INSTEAD OF PO AFTER SPEAKING W/ HOSPITALIST BUT WILL DISCUSS W/ DAY NURSE ABOUT GETTING IT CHANGED TO IV. ONE TIME IM THORAZINE WAS ADMINISTERED THIS SHIFT. PT HAS TIMES THAT HE APPEARS TO REST COMFORTABLY, BUT HE GENERALLY DOES NOT SLEEP FOR MORE THAN 30-40 MINUTES AT A TIME. RESTRAINTS STILL IN PLACE AND DOCUMENTATION IS CURRENT.
[2021-12-10 05:56] LABS: Anion Gap 11 mmol/L (6-16); Blood Urea Nitrogen 20 mg/dL (8-24); Bun/Creatinine Ratio 29.9 (12.0-20.0); CO2, Blood 35 mmol/L (21-32); Calcium, Blood 9.2 mg/dL (8.5-10.1); Chloride, Blood 97 mmol/L (98-108); Creatinine, Blood 0.67 mg/dL (0.60-1.20); Glomerular Filtration Rate >60 (60-); Glucose, Blood 66 mg/dL (70-99); Sodium, Blood 143 mmol/L (136-145)
[2021-12-10 06:17] LABS: BASOPHILS ABSOLUTE AUTO 0.05 K/mm3 (0.00-0.23); BASOPHILS PERCENT AUTO 0 % (0-2); EOSINOPHILS ABSOLUTE AUTO 0.02 K/mm3 (0.00-0.68); EOSINOPHILS PERCENT AUTO 0 % (0-6); Hematocrit 45.4 % (37.0-53.0); Hemoglobin 14.8 g/dL (13.5-17.5); IMMATURE GRAN PERCENT AUTO 2 % (0-1); LYMPHOCYTES ABSOLUTE AUTO 1.05 K/mm3 (0.84-5.20); LYMPHOCYTES PERCENT AUTO 6 % (21-46); MONOCYTES ABSOLUTE AUTO 1.84 K/mm3 (0.16-1.47); MONOCYTES PERCENT AUTO 10 % (4-13); Mean Corpuscular HGB 29.8 pg (26.0-34.0); Mean Corpuscular HGB Conc 32.6 g/dL (31.5-36.5); Mean Corpuscular Volume 91 fL (80-100); Mean Platelet Volume 9.9 fL (9.1-12.4); NEUTROPHILS ABSOLUTE AUTO 14.95 K/mm3 (1.96-9.15); NEUTROPHILS PERCENT AUTO 82 % (41-73); Platelet Count 373 K/mm3 (150-400); RDW Coefficient Variation 14.6 % (11.7-14.2); RDW Standard Deviation 48.7 fL (35.1-46.3); Red Blood Cell Count 4.97 M/mm3 (4.30-5.90); White Blood Cell Count 18.21 K/mm3 (4.00-11.30)
--- NOTE | 2021-12-10 13:47 | NUR ---
Ethics consult order processed. Chart examined, prognostic indicators reviewed, and case peculiarities discussed with palliative care. The principal is bereft of a completed advance care planning instument, has no reliable proxy support, and is neurologically comrpomised. In accordance with ORS 127.635 (3), if two providers attest that the principal is in a terminal condition, and that ongoing restorative therapies would be disproportionate or non-beneficial, then the principals code status may be adjusted to a non-aggressive approach, and a hospice election may be pursued. Thank you for this consult. Mihai Horan ThD, TIARRA
--- NOTE | 2021-12-10 14:15 | NUR ---
Called to see patient due to irregular cardiac rythms and declining condition. pt history of multiple hospitalizations and increasing need for medical care. Pt had cpr and poor outcomes. Pt has friend listed as next of kin. Called their number and it was an institution. Contacted his care team at the [place]. They sent a copy of his advance directive. The patient did not check any of the boxes for care wishes and as next of kin. Called the number the of the friend he answered but was unable to express who he was. staff ansered phone he is in memory skilled nursing. Also contacted the pillowcase maker office for potential information They had different friends listed as contacts and a phone number. Called the number it was to a [facility] room. searched his belonging not information. Pt PPS scoew iw 20% pt is full code. He is in restraints due to restelssness. After assessment pt having some mild air hunger. Pt is frail and cachectic, He is confussed and minimaly verbal. Pt is at risk for suffering and prognosis is very poor. Physicians feel comfort care and hospice is compsaionalte care for this patient. After vetting his lack of next of kin. and an incomplete advace directive and review with with his cardiac care unit nurse for homelessness at [place]. This unfortunate gentlman needs compassionalte care and to reduce suffering as giuded by [facility] directives of care. Updated hospitalist They will discuss his prognosis and needs and with a two physician consult for comfort and hospice. Advised the volunteers to visit him will update chaplians for surgate support at end of life.
--- NOTE | 2021-12-10 15:56 | NUR ---
Spiritual Care Visit On the recommendation of Palliative Care. Pt. is in his bed and is awake but only mildly coherant. Attempted to communicate with Pt. but Pt. did not respond with words. Pt. displayed evidence of great discomfort and several times tried to get up. This court orderly sought to honor him, but pt. displayed evidence of agitation. Prayed a prayer of comfort over the pt. and as a honoring his service to our country. Verbally reported my encounter with the floor nurse.
--- NOTE | 2021-12-10 16:00 | NUR ---
COMFORT CARE PATIENT TRANSITIONED TO COMFORT CARE. PATIENT CONTINUES TO ATTEMPT TO PULL ON FERRIS CATHETER. WRIST RESTRAINTS STILL IN PLACE. VEST RESTRAINT D/C'D AND ONE SIDE RAIL LOWERED. PATIENT SHOWS SIGNS OF AIR HUNGER. MEDICATED PER NOV. FLUIDS OFFERED TO PATIENT BUT REFUSED. BOOSTED AND REPOSITIONED IN BED. WILL CONTINUE TO MONITOR.
--- NOTE | 2021-12-10 18:32 | NUR ---
SHIFT SUMMARY PATIENT VERY RESTLESS AND ATTEMPTINGF TO PULL OUT FERRIS AND TELE AND THROWING LEGS OVER SIDERAIL AT FIRST PART OF SHIFT. PATIENT HAVING EPISODES OF TACHY AND O2 SATS DROPPING. PATIENT TRANSITIONED TO COMFORT CARE THIS AFTERNOON. MEDICATD FOR AIR HUNGER AND ANXIETY. CURRENTLY PATIENT RESTING COMFORTABLY ON 2L NC FOR COMFORT. FERRIS CATHETER PRESENT, PATENT AND DRAINING TO GRAVITY. WILL CONTINUE TO MONITOR.
--- NOTE | 2021-12-11 06:12 | NUR ---
SHIFT SUMMARY PATIENT RESPONSIVE TO PAIN, MEDICATED PER EMAR FOR PAIN, AGITATION, AND SECRETIONS. HAVING PERIODS OF APNEA AND AGONAL BREATHING. BED IN LOWEST POSITION WITH WHEELS LOCKED AND ALARM ON. CALL LIGHT WITHIN REACH. REPORT GIVEN TO ONCOMING RN.
--- NOTE | 2021-12-11 09:45 | NUR ---
NURSE NOTE PATIENT ON COMFORT CARE. EXAMINED PATIENT AND FOUND NOT BREATHING AND NO PULSE. HEART AND LUNG SOUNDS ABSENT. INFORMED CHARGE NURSE AND CONFIRMED. TIME OF 0942. DOCTOR NOTIFIED OF PATIENT PASSING. NO FAMILY TO NOTIFY.
--- NOTE | 2021-12-11 10:14 | NUR ---
pt updated staff on status.
== END 2021-12-11 09:42 | DRG 208 ==
LOC: ER 11:08 → ICUW 12:37 → ICUE 12:37 → MEDS 12-05 17:51 → PCU 12-06 08:55 → MEDS 12-08 18:48
PROVIDERS: Emergency Medicine; Family Medicine; Internal Medicine Critical Care Medicine; Nurse Practitioner Acute Care; ADMIT Internal Medicine
PROC: 5A12012 Performance of Cardiac Output, Single, Manual (ICD-10-PCS; principal; 2021-11-30)
PROC: 5A1945Z Respiratory Ventilation, 24-96 Consecutive Hours (ICD-10-PCS; 2021-11-30)
PROC: 02HV33Z Insertion of Infusion Device into Superior Vena Cava, Percutaneous Approach (ICD-10-PCS; 2021-11-30)
PROC: B548ZZA Ultrasonography of Superior Vena Cava, Guidance (ICD-10-PCS; 2021-11-30)
PROC: 3E033XZ Introduction of Vasopressor into Peripheral Vein, Percutaneous Approach (ICD-10-PCS; 2021-11-30)
PROC: 5A09357 Assistance with Respiratory Ventilation, Less than 24 Consecutive Hours, Continuous Positive Airway Pressure (ICD-10-PCS; 2021-12-04)
DX: J96.01 Acute respiratory failure with hypoxia (principal); J15.1 Pneumonia due to Pseudomonas; R65.11 Systemic inflammatory response syndrome (SIRS) of non-infectious origin with acute organ dysfunction; J44.0 Chronic obstructive pulmonary disease with (acute) lower respiratory infection; J44.1 Chronic obstructive pulmonary disease with (acute) exacerbation; R64 Cachexia; E87.2 Acidosis; J96.02 Acute respiratory failure with hypercapnia; I46.8 Cardiac arrest due to other underlying condition; G89.29 Other chronic pain; M54.9 Dorsalgia, unspecified; R19.7 Diarrhea, unspecified; Z68.20 Body mass index [BMI] 20.0-20.9, adult; K21.9 Gastro-esophageal reflux disease without esophagitis; I10 Essential (primary) hypertension; E83.42 Hypomagnesemia; Z51.5 Encounter for palliative care; Z59.00 Homelessness unspecified; F32.A Depression, unspecified; F10.20 Alcohol dependence, uncomplicated; Z98.890 Other specified postprocedural states; Z88.8 Allergy status to other drugs, medicaments and biological substances; M19.90 Unspecified osteoarthritis, unspecified site; Z78.1 Physical restraint status
CPT/HCPCS: 0097U; 31720; 36415; 36556; 36600; 51702; 70450; 71045; 71260; 74177; 80048; 80053; 82330; 82803; 82947; 83605; 83735; 83880; 84100; 84484; 85025; 85379; 87040; 87070; 87077; 87106; 87186; 87205; 92526; 92610; 92950; 93005; 93010; 93308; 94002; 94003; 94640; 94660; 94664; 94760; 94762; 96365; 96375; 97162; 97530; 99291-25; 99292; A9270; C1751; C9113; G0480; J0456; J0692; J1650; J2060; J2405; J2704; J2930; J3010; J3230; J3370; J3475; J7030; J7050; J7060; J7120; Q9967